=== PATIENT | male | born 1965 | race Caucasian/White ===

== ENCOUNTER 2021-08-15 07:06 | Outpatient (REF) | payer BC, SELFPAY ==
[2021-08-15 11:26] LABS: MANUAL DIFF FLAG NO
[2021-08-15 11:37] LABS: Basophils Percent Auto 0.6 % (0-2); Eosinophils Absolute Auto 0.1 X10*3/uL (0.0-0.4); Eosinophils Percent Auto 2.5 % (0-4); Hemoglobin 16.4 g/dl (14.0-18.0); Imm Gran Abs Auto 0.01 X10*3/uL (0.00-0.03); Imm Gran Pct Auto 0.2 % (0.0-0.4); Lymphocytes Absolute Auto 1.4 X10*3/uL (1.2-4.9); Lymphocytes Percent Auto 27.7 % (20-40); Mean Corpuscular HGB Conc 34.2 g/dl (31.0-36.0); Mean Corpuscular Hemoglobin 29.2 pg (27.0-33.0); Mean Corpuscular Volume 85.6 fL (80.0-98.0); Mean Platelet Volume 11.1 fL (9.4-12.4); Monocytes Absolute Auto 0.4 X10*3/uL (0.1-1.2); Monocytes Percent Auto 6.9 % (2-11); Neutrophils Absolute Auto 3.2 x10*3/uL (2.0-8.3); Neutrophils Percent Auto 62.1 % (45-73); Platelet Count 192 X10*3/uL (160-400); Red Blood Count 5.61 X10*6/uL (4.60-5.80); Red Cell Distribution Width 12.4 % (11.0-16.0); White Blood Count 5.2 X10*3/uL (4.8-10.8)
[2021-08-15 12:11] LABS: Alanine Aminotransferase 30 U/L (0-40); Albumin Level 4.2 g/dL (3.5-5.0); Alkaline Phosphatase 42 U/L (39-117); Anion Gap 11 (12-20); Aspartate Amino Transferase 18 U/L (5-37); Bilirubin Total 0.6 mg/dL (0.0-1.0); Blood Urea Nitrogen 22 mg/dL (9-16); Calcium 9.5 mg/dL (8.4-10.2); Carbon Dioxide 28 mmol/L (22-29); Chloride 106 mmol/L (96-108); Cholesterol 217 mg/dL; Estimated Glomerular Filt Rate > 60; Glucose Fasting 127 mg/dL (60-99); HDL Cholesterol 43 mg/dL; LDL Cholesterol Calculated 163 mg/dl; Potassium 4.7 mmol/L (3.3-5.1); Prostate Specific Antigen Scr 1.12 ng/mL (<0.05-4.0); Sodium 140 mmol/L (135-145); TSH reflex Free T4 1.31 uIU/mL (0.32-4.0); Total Protein 6.6 g/dL (6.5-8.0); Triglycerides 57 mg/dL
[2021-08-20 16:37] LABS: Testosterone, Free 91.8 pg/mL (35.0-155.0); Testosterone, Total 491 ng/dL (250-1100)
== END 2021-08-15 07:07 | disposition home or self-care (01) ==
LOC: HO.WFDLDS 07:06
PROVIDERS: Visit Provider Family Medicine
DX: Z00.00 Encounter for general adult medical examination without abnormal findings (principal); F41.9 Anxiety disorder, unspecified; F32.A Depression, unspecified; R00.2 Palpitations; Z12.5 Encounter for screening for malignant neoplasm of prostate
CPT/HCPCS: 36415; 80053; 80061; 84153; 84402; 84403; 84443; 85025

== ENCOUNTER → 2021-09-18 12:49 | Outpatient (BNVA) | payer BC, SELFPAY | PROVIDERS: Visit Provider Internal Medicine | DX: F10.21 Alcohol dependence, in remission (principal) | CPT/HCPCS: 80305 ==

== ENCOUNTER 2021-09-19 07:02 | Outpatient (REF) | payer BC, SELFPAY ==
[2021-09-19 11:37] LABS: Estimated Average Glucose 114 mg/dL; Hemoglobin A1c % 5.6 %
[2021-09-19 11:50] LABS: Anion Gap 12 (12-20); Blood Urea Nitrogen 18 mg/dL (9-16); Calcium 9.9 mg/dL (8.4-10.2); Carbon Dioxide 27 mmol/L (22-29); Chloride 108 mmol/L (96-108); Estimated Glomerular Filt Rate > 60; Glucose Fasting 131 mg/dL (60-99); Sodium 142 mmol/L (135-145)
== END 2021-09-19 07:03 | disposition home or self-care (01) ==
LOC: HO.WFDLDS 07:02
PROVIDERS: Visit Provider Family Medicine
DX: R73.01 Impaired fasting glucose (principal)
CPT/HCPCS: 36415; 80048; 83036

== ENCOUNTER → 2021-10-11 11:02 | Outpatient (REF) | payer BC, SELFPAY ==
--- NOTE | 2021-10-11 11:07 | HM_ITS ---
Conclusion: 1. Baseline numbers normal sinus rhythm with average heart rate of 84 beats per minute 2. No significant pauses or bradycardia noted 3. 4 runs of supra tachycardia, longest lasting 12 beats 4. Very rare ectopics noted 5. No patient reported events 6. Patient was monitored for total period of 5 days and 4 hours MTDD
== END ==
LOC: HO.CARD 11:02
PROVIDERS: PCP Family Medicine; Visit Provider Family Medicine
DX: R00.2 Palpitations (principal)
CPT/HCPCS: 93242

== ENCOUNTER → 2021-12-05 12:47 | Outpatient (BNVA) | payer BC, SELFPAY | PROVIDERS: PCP Family Medicine; Referring Provider Family Medicine; Visit Provider Internal Medicine Cardiovascular Disease | DX: Z13.89 Encounter for screening for other disorder (principal) ==

== ENCOUNTER → 2022-07-20 06:38 | Outpatient (REF) | payer BC, SELFPAY ==
--- NOTE | 2022-07-20 06:41 | HM_ITS ---
Conclusion: 1. Patient was monitored for total period of 3 days 2. Baseline was normal sinus rhythm with average heart rate of 71 beats per minute 3. No significant bradycardia or pauses noted 4. Total of 15,040 PACs accounting for 4.8% total beats account for frequent PACs 5. Patient reported 1 event correlated with sinus rhythm MTDD
== END ==
LOC: HO.CARD 06:38
PROVIDERS: PCP Family Medicine; Visit Provider Internal Medicine Cardiovascular Disease
DX: I47.1 Supraventricular tachycardia (principal)
CPT/HCPCS: 93242

== ENCOUNTER 2022-12-03 07:12 | Outpatient (REF) | payer BC, SELFPAY ==
[2022-12-03 11:24] LABS: MANUAL DIFF FLAG NO
[2022-12-03 11:48] LABS: Appearance Urine Clear; Color Urine Yellow; Glucose Urine UA Negative (Negative); Leukocyte Esterase Urine Negative (Negative); Nitrite Urine Negative (Negative); Specific Gravity - Urine 1.015 (1.005-1.025); Urine Blood Negative (Negative); Urine Ketones Negative (Negative); Urine Protein Negative (Neg-Trace)
[2022-12-03 11:58] LABS: Basophils Absolute Auto 0.1 X10*3/uL (0.0-0.2); Eosinophils Absolute Auto 0.2 X10*3/uL (0.0-0.4); Eosinophils Percent Auto 3.4 % (0-4); Hematocrit 45.5 % (42.0-52.0); Hemoglobin 15.3 g/dl (14.0-18.0); Imm Gran Abs Auto 0.03 X10*3/uL (0.00-0.03); Imm Gran Pct Auto 0.5 % (0.0-0.4); Lymphocytes Absolute Auto 1.9 X10*3/uL (1.2-4.9); Lymphocytes Percent Auto 30.8 % (20-40); Mean Corpuscular HGB Conc 33.6 g/dl (31.0-36.0); Mean Corpuscular Hemoglobin 28.7 pg (27.0-33.0); Mean Corpuscular Volume 85.2 fL (80.0-98.0); Mean Platelet Volume 11.4 fL (9.4-12.4); Monocytes Absolute Auto 0.5 X10*3/uL (0.1-1.2); Monocytes Percent Auto 8.2 % (2-11); Neutrophils Absolute Auto 3.4 x10*3/uL (2.0-8.3); Neutrophils Percent Auto 56.1 % (45-73); Platelet Count 183 X10*3/uL (160-400); Red Blood Count 5.34 X10*6/uL (4.60-5.80); Red Cell Distribution Width 13.3 % (11.0-16.0); White Blood Count 6.1 X10*3/uL (4.8-10.8)
[2022-12-03 12:22] LABS: Alanine Aminotransferase 31 U/L (0-40); Alkaline Phosphatase 39 U/L (39-117); Anion Gap 13 (12-20); Aspartate Amino Transferase 17 U/L (5-37); Bilirubin Total 0.5 mg/dL (0.0-1.0); Blood Urea Nitrogen 17 mg/dL (9-16); Calcium 9.1 mg/dL (8.4-10.2); Carbon Dioxide 26 mmol/L (22-29); Chloride 107 mmol/L (96-108); Cholesterol 142 mg/dL; Estimated Glomerular Filt Rate > 60; Glucose Fasting 135 mg/dL (60-99); HDL Cholesterol 32 mg/dL; LDL Cholesterol Calculated 100 mg/dl; Potassium 4.6 mmol/L (3.3-5.1); Sodium 141 mmol/L (135-145); TSH reflex Free T4 1.81 uIU/mL (0.32-4.0); Total Protein 6.3 g/dL (6.5-8.0); Triglycerides 52 mg/dL
[2022-12-03 12:40] LABS: Creatinine Urine 78.11 mg/dL; Microalbum/Creatinine Ratio Ur 7.6 ug/mg cr
[2022-12-10 06:54] LABS: Testosterone, Free 76.4 pg/mL (35.0-155.0); Testosterone, Total 404 ng/dL (250-1100)
== END 2022-12-03 07:13 | disposition home or self-care (01) ==
LOC: HO.WFDLDS 07:12
PROVIDERS: Visit Provider Family Medicine
DX: Z00.00 Encounter for general adult medical examination without abnormal findings (principal); R53.83 Other fatigue; R68.82 Decreased libido; I10 Essential (primary) hypertension
CPT/HCPCS: 36415; 80053; 80061; 81003; 82043; 84402; 84403; 84443; 85025

== ENCOUNTER → 2022-12-06 09:08 | Outpatient (BNVA) | payer BC, SELFPAY | PROVIDERS: PCP Family Medicine; Referring Provider Family Medicine; Visit Provider Internal Medicine Cardiovascular Disease | DX: I49.9 Cardiac arrhythmia, unspecified (principal) | CPT/HCPCS: 93005 ==

== ENCOUNTER 2023-04-16 05:58 | Outpatient (REF) | payer BC, SELFPAY ==
[2023-04-16 07:31] LABS: Appearance Urine Clear; Color Urine Yellow; Glucose Urine UA Negative (Negative); Leukocyte Esterase Urine Negative (Negative); Nitrite Urine Negative (Negative); Specific Gravity - Urine 1.015 (1.005-1.025); Urine Blood Negative (Negative); Urine Ketones Negative (Negative); Urine Protein Negative (Neg-Trace)
[2023-04-16 08:17] LABS: Creatinine Urine 75.84 mg/dL; Microalbumin Urine < 5.0 mg/L
[2023-04-16 08:34] LABS: Alanine Aminotransferase 41 U/L (0-40); Albumin Level 4.2 g/dL (3.5-5.0); Alkaline Phosphatase 39 U/L (39-117); Anion Gap 12 (12-20); Aspartate Amino Transferase 24 U/L (5-37); Bilirubin Total 0.4 mg/dL (0.0-1.0); Blood Urea Nitrogen 16 mg/dL (9-16); Calcium 9.6 mg/dL (8.4-10.2); Carbon Dioxide 28 mmol/L (22-29); Chloride 106 mmol/L (96-108); Cholesterol 136 mg/dL; Estimated Glomerular Filt Rate > 60; Glucose Fasting 127 mg/dL (60-99); HDL Cholesterol 34 mg/dL; LDL Cholesterol Calculated 94 mg/dl; Potassium 4.9 mmol/L (3.3-5.1); Sodium 141 mmol/L (135-145); Total Protein 6.9 g/dL (6.5-8.0); Triglycerides 42 mg/dL
[2023-04-16 08:37] LABS: TSH reflex Free T4 2.01 uIU/mL (0.32-4.0)
[2023-04-16 08:38] LABS: Prostate Specific Antigen Scr 1.43 ng/mL (<0.05-4.0)
== END 2023-04-16 05:59 | disposition home or self-care (01) ==
LOC: HO.LAB 05:58
PROVIDERS: PCP Family Medicine; Visit Provider Family Medicine
DX: Z00.00 Encounter for general adult medical examination without abnormal findings (principal); Z12.5 Encounter for screening for malignant neoplasm of prostate; I10 Essential (primary) hypertension
CPT/HCPCS: 36415; 80053; 80061; 81003; 82043; 84153; 84443

== ENCOUNTER 2023-04-23 16:02 | Outpatient (AMB) | payer BC, SELFPAY ==
--- NOTE | 2023-04-23 16:08 | A.OFFPC_ITS ---
Vital Signs 04/23/23 16:09 Height 6 ft Weight 237 lb BMI 32.1 BP 126/70 Blood Pressure Location Lt brachial Position Sitting Pulse 82 Pulse Source Pulse Oximeter Pulse Oximetry (%) 98 Oxygen Delivery Method Room Air Intake Visit Reasons: Follow up on labs Intake Note: Patient is here to follow up on his labs. Allergies citalopram Adverse Reaction (Mild, Verified 04/23/23 16:11) palpitaitons sertraline Adverse Reaction (Mild, Verified 04/23/23 16:11) Palpitations Tobacco use date assessed: 04/23/23 Dental Screening Dental Screen Date: 04/23/23 Did you have a dental visit in the last 12 months?: Yes Did you have a dental problem in the last 6 months where you did not have access to dental care?: No Was dental information given to patient?: Patient has dentist HPI Follow up on labs HPI Details 57 y/o male presents to f/u pre-diabetes and labs. Labs were drawn 04/16/23. Reviewed labs with pt. Elevated ALT 41. He denies EtOH use. Triglycerides 42. TC 136. LDL 94. HDL low at 34. A1c today 04/23/23 is 5.7%. He reports he has been having ongoing issues with motivation and has not been training lately. Pt has ongoing complaints of fatigue and ongoing palpitations. [facility] Medical History Biceps muscle tear Surgical History Previous back surgery Family History Mother Stroke Diabetes Other Mental health disorder Substance use disorder Social History Housing: Other (mobile home ) Patient Tobacco Use Status: Current everyday Tobacco user (chewing tobacco) e-Cigarette/Vaping Use: Never Used Second Hand Smoke Exposure: No Current occupational status: employed Current occupational exposures/hazards: No Cognitive needs: No Hearing needs: No Vision needs: No Questionnaire Thrive Questionnaire Date Thrive assessed: 11/22/22 DREAD-7 AMB Questionnaire DREAD-7 Date DREAD - 7 assessed: 11/22/22 Source: Developed by Drs. Paul L. Leah Taylor, Guru Burciaga and colleagues, with an educational ladi from [employer]. Review of Systems Const Denies chills, Denies fatigue, Denies fever(s), Denies headache(s) and Denies weakness ENT Denies dizziness and Denies headache(s) Card Denies dyspnea Resp Denies cough, Denies dyspnea, Denies wheezing and Denies other (shortness of breath) Musc Denies numbness and Denies tingling Neuro Denies dizziness, Denies headache(s), Denies numbness, Denies tingling and Denies weakness Psych Denies anxiety and Denies depression Endo Denies fatigue Aller/Immun Denies wheezing Physical exam (Primary Care) Vital Signs: Last Vital Signs Pulse 82 04/23/23 16:09 BP 126/70 04/23/23 16:09 Pulse Ox 98 04/23/23 16:09 Oxygen Delivery Method Room Air 04/23/23 16:09 BMI result Body Mass Index 32.1 Tobacco/Smoking Status: Tobacco use Status Tobacco use date assessed 04/23/23 04/23/23 16:16 Patient Tobacco Use Status Current everyday Tobacco ( 04/23/23 16:10 chewing tobacco) e-Cigarette/Vaping Use Never Used 04/23/23 16:10 Thrive Assessment: Date of Thrive Assessment Date Thrive assessed 11/22/22 04/23/23 16:10 Const General: well developed; No acute distress Nutritional Appearance: well nourished Orientation/consciousness: patient oriented x3 HENMT Head: Yes normocephalic and Yes atraumatic Eyes General: appearance normal, both eyes and all related structures Pupils: Equal, round and reactive pupils present EOM: EOMs intact bilaterally Resp Effort & Inspection: normal respiratory effort Neuro General: patient oriented x3 and gait normal Cranial nerves: Yes Equal, round and reactive pupils present Psych Affect: normal affect Results AMB Hemoglobin A1c AMB Hemoglobin A1c 5.7 % Last Edit by Addie Shipman CMA on 04/23/23 16:29 Results Reviewed Results Reviewed: Laboratory Last Values Hgb A1c (Clinic) 5.7 % (4.0-6.0) 04/23/23 16:28 Assessment and Plan Assessment & Plan (1) Hypercholesterolemia: Code(s): E78.00 - Pure hypercholesterolemia, unspecified Plan: Total cholesterol and LDL are controlled with rosuvastatin HDL is still low Encouraged exercise (2) Elevated ALT measurement: Code(s): R74.01 - Elevation of levels of liver transaminase levels Plan: Mildly elevated ALT Encouraged good hydration and gradual weight loss Hydrate well Will recheck in 6-8 weeks (3) Pre-diabetes: Code(s): R73.03 - Prediabetes Plan: A1c is again 5.7%; pre diabetes range and stable Encouraged additional exercise Will follow-up (4) Anxiety and depression: Code(s): F41.9 - Anxiety disorder, unspecified; F32.A - Depression, unspecified Plan: Fairly stable on current medication regimen and only using lorazepam occasionally Continue current medication regimen (5) Fatigue: Code(s): R53.83 - Other fatigue Plan: Still has ongoing moderately severe fatigue Cardiac workup has been fairly unrevealing. He is using his CPAP regularly. Lab work also unrevealing so far. 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
[2023-04-23 16:09] VITALS: BP 126/70; PULSE 82; O2SAT 98; BMI 32.1
== END 2023-04-23 16:57 | disposition home or self-care (01) ==
PROVIDERS: PCP Family Medicine; Visit Provider Family Medicine
DX: E78.00 Pure hypercholesterolemia, unspecified (principal); R74.01 Elevation of levels of liver transaminase levels; R73.03 Prediabetes; F41.9 Anxiety disorder, unspecified; F32.A Depression, unspecified; R53.83 Other fatigue; R00.2 Palpitations
CPT/HCPCS: 83036; 99214

== ENCOUNTER 2023-09-03 06:06 | Outpatient (REF) | payer BC, SELFPAY ==
[2023-09-03 07:27] LABS: Alanine Aminotransferase 51 U/L (0-40); Albumin Level 4.2 g/dL (3.5-5.0); Alkaline Phosphatase 37 U/L (39-117); Anion Gap 10 (12-20); Aspartate Amino Transferase 24 U/L (5-37); Bilirubin Total 0.4 mg/dL (0.0-1.0); Blood Urea Nitrogen 13 mg/dL (9-16); Calcium 9.3 mg/dL (8.4-10.2); Carbon Dioxide 30 mmol/L (22-29); Chloride 108 mmol/L (96-108); Estimated Glomerular Filt Rate > 60; Glucose Fasting 126 mg/dL (60-99); Potassium 4.8 mmol/L (3.3-5.1); Sodium 143 mmol/L (135-145); Total Protein 6.8 g/dL (6.5-8.0)
== END 2023-09-03 06:07 | disposition home or self-care (01) ==
LOC: HO.LAB 06:06
PROVIDERS: PCP Family Medicine; Visit Provider Family Medicine
DX: Z00.00 Encounter for general adult medical examination without abnormal findings (principal); R74.01 Elevation of levels of liver transaminase levels
CPT/HCPCS: 36415; 80053

== ENCOUNTER 2023-09-11 14:25 | Outpatient (AMB) | payer BC, SELFPAY ==
--- NOTE | 2023-09-11 14:18 | A.OFFPC_ITS ---
Intake Visit Reasons: follow-up elevated liver enzymes Intake Note: Patient is here to follow up on his liver enzymes today. Allergies citalopram Adverse Reaction (Mild, Verified 09/11/23 14:21) palpitaitons sertraline Adverse Reaction (Mild, Verified 09/11/23 14:21) Palpitations Tobacco use date assessed: 09/11/23 HPI follow-up elevated liver enzymes HPI Details 57 y/o male presents to f/u elevated [facility] enzymes via telemedicine. Labs were drawn 09/03/23. Reviewed labs with pt. Elevated fasting glucose of 126. Last A1c in April was 5.7%. ALT worsened from 41 to 51. [facility] Medical History Biceps muscle tear Surgical History Previous back surgery Family History Mother Stroke Diabetes Other Mental health disorder Substance use disorder Social History Housing: Other (mobile home ) Patient Tobacco Use Status: Current everyday Tobacco user (chewing tobacco) e-Cigarette/Vaping Use: Never Used Second Hand Smoke Exposure: No Current occupational status: employed Current occupational exposures/hazards: No Cognitive needs: No Hearing needs: No Vision needs: No Questionnaire Thrive Questionnaire Date Thrive assessed: 11/22/22 DREAD-7 AMB Questionnaire DREAD-7 Date DREAD - 7 assessed: 11/22/22 Source: Developed by Drs. Paul Taylor, Leah Hopson, Guru Burciaga and colleagues, with an educational ladi from [employer]. Review of Systems Const Denies chills, Denies fatigue, Denies fever(s), Denies headache(s) and Denies weakness ENT Denies dizziness and Denies headache(s) Card Denies dyspnea Resp Denies cough, Denies dyspnea, Denies wheezing and Denies other (shortness of breath) Musc Denies numbness and Denies tingling Neuro Denies dizziness, Denies headache(s), Denies numbness, Denies tingling and Denies weakness Psych Denies anxiety and Denies depression Endo Denies fatigue Aller/Immun Denies wheezing Physical exam (Primary Care) Tobacco/Smoking Status: Tobacco use Status Tobacco use date assessed 09/11/23 09/11/23 14:21 Patient Tobacco Use Status Current everyday Tobacco ( 09/11/23 14:21 chewing tobacco) e-Cigarette/Vaping Use Never Used 09/11/23 14:21 Thrive Assessment: Date of Thrive Assessment Date Thrive assessed 11/22/22 09/11/23 14:21 Telehealth Telehealth Location of provider rendering services: practice address Location of patient: address on file Patient Identification confirmed using: Name, : Yes Telehealth method: voice only Patient verbally consented to treatment: Yes Patient verbally consented to billing insurance company: Yes Patient informed of any privacy concerns related to visit: Yes Minutes spent on Phone/Video with Pt.: 5 Assessment and Plan Assessment & Plan (1) Elevated ALT measurement: Code(s): R74.01 - Elevation of levels of liver transaminase levels Plan: Liver?enzymes?remain?mildly?elevated?and?slightly?increased Will?check?ultrasound Encouraged?weight?loss (2) Pre-diabetes: Code(s): R73.03 - Prediabetes Plan: We?can?check A1c?with?his?next?blood?draw Orders: Orders US abdomen berman w elastography Today R74.01 - Elevation of levels of liver transaminase levels Coding Level of Care Code Tele Est Pt Level 2 (79278) Diagnoses Elevated ALT measurement R74.01 Pre-diabetes R73.03
== END 2023-09-11 17:00 ==
LOC: HO.HMGFM 14:25
PROVIDERS: PCP Family Medicine; Visit Provider Family Medicine
DX: R74.01 Elevation of levels of liver transaminase levels (principal); R73.03 Prediabetes
CPT/HCPCS: 99441

== ENCOUNTER 2023-10-11 07:28 | Outpatient (REF) | payer BC, SELFPAY ==
--- NOTE | ~2023-10-11 | US_ITS ---
EXAMINATION: US ABDOMEN LIMITED WITH LIVER ELASTOGRAPHY CLINICAL INFORMATION: Elevated serum transaminase levels. COMPARISON: None available. TECHNIQUE: Real-time imaging of the abdominal viscera. Noninvasive ultrasound liver fibrosis assessment is performed using Sherrell ElastPQ point quantification shear wave elastography (2D-SWE) with a C5-2 MHz transducer. Multiple elastography samples are obtained. FINDINGS: PANCREAS: Normal. The visualized pancreatic head and body are normal in appearance. The remainder of the pancreas is obscured from visualization by the overlying bowel gas. LIVER: Normal. The liver demonstrates normal size, contour and echogenicity. No focal lesion or intrahepatic biliary duct dilatation. The right lobe measures 16.4 cm in length. The left lobe measures 9.0 cm in length. Portal flow is towards the liver (hepatopetal). Shear wave liver elastography median stiffness is 1.33 m/s (reference: normal median stiffness is 1.3 m/s or less). IQR/median stiffness to assess sampling precision is 0.05 (reference: good quality data set is IQR/median stiffness of 0.15 or less). GALLBLADDER: Normal. The gallbladder is physiologically distended without evidence of stones, sludge, polyps, wall thickening or pericholecystic fluid. COMMON BILE DUCT: Normal in caliber measuring 0.2 cm in diameter. RIGHT KIDNEY: At the lower pole, a 1.1 cm benign, simple cyst is seen, which requires no imaging follow-up. No hydronephrosis. At the lower pole, a 6 mm nonobstructing calculus is seen. The kidney measures 12.2 cm in maximum dimension. FREE FLUID: None. US/US abdomen berman w elastography IMPRESSION: 1. Liver elastography: In the absence of other known clinical signs, measurements rule out compensated advanced chronic liver disease. If there are known clinical signs, further testing may be needed for confirmation. 2. A 6 mm nonobstructing right renal lower pole calculus is seen. REFERENCE: Society of Radiologists in Ultrasound Liver Stiffness Thresholds (2020): LIVER STIFFNESS THRESHOLDS: *Liver Stiffness equal or less than 1.3 m/s: High probability of being normal. *Liver Stiffness less than 1.7 m/s: In the absence of other known clinical signs, rules out compensated advanced chronic liver disease. *Liver Stiffness 1.7-2.1 m/s: Suggestive of compensated advanced chronic liver disease but need further test for confirmation. *Liver Stiffness over 2.1 m/s: Rules in compensated advanced chronic liver disease. *Liver Stiffness over 2.4 m/s: Suggestive of clinically significant portal hypertension. QUALITY OF DATA SET: *IQR/Median value equal or less than 0.15 implies a quality data set. *IQR/Median value over 0.15 implies a poor quality data set. SIGNIFICANT CHANGE FROM PRIOR EXAM: Significant change if liver stiffness measurement is 10% or greater from prior exam. OTHER CONSIDERATIONS: The stage of liver fibrosis may be overestimated in the setting of acute hepatitis, liver inflammation, elevated liver function tests, hepatic vascular congestion, obstructive cholestasis, non-fasting state, and infiltrative diseases such as amyloidosis and lymphoma. In some patients with NAFLD, the liver stiffness thresholds for compensated advanced chronic liver disease may be lower. In causes other than viral hepatitis and NAFLD, liver stiffness thresholds are not well established.
== END 2023-10-11 07:29 | disposition home or self-care (01) ==
LOC: HO.US 07:28
PROVIDERS: PCP Family Medicine; Visit Provider Family Medicine
DX: R74.01 Elevation of levels of liver transaminase levels (principal)
CPT/HCPCS: 76705; 76981

== ENCOUNTER → 2023-11-15 13:29 | Outpatient (REF) | payer BC, SELFPAY ==
--- NOTE | 2023-11-15 13:41 | CA_ITS ---
Transthoracic Echocardiogram Patient (Last, First, Middle): Juan F Tony, Gender: Male Date of : 1965 Age: 58 Procedure Date: 11/15/2023 Procedure Type: Transthoracic Echocardiogram Location: OP Height: 185.42 cm Weight: 105.69 kg BSA: 2.30 m2 Heart Rate: 67 bpm BP: 128 / 64 mmHg Team Manager: EZ Referring MD: Chapincito Gomez MD Thermal Cutter Hand: Chapincito Gomez MD Symptoms: I49.9 - Cardiac arrhythmia, unspecified Study Quality: Adequate ECG Rhythm: Sinus Conclusions: - 1. Normal LV ejection fraction of 60 65% 2. Normal cardiac valvular Doppler 3. No gross pericardial effusion Findings Left Ventricle Normal left ventricular size, thickness, and systolic function. The visually estimated ejection fraction is between 60-65%. Spectral Doppler is indicative of a normal filling pattern. Right Ventricle Normal right ventricular cavity size and systolic function. Atria Both atria are normal in size. There is no evidence of interatrial shunt. Aortic Valve There is a normal trileaflet aortic valve. There is no aortic valve stenosis. There is no aortic valve regurgitation. Mitral Valve Normal mitral valve structure and function. There is trace mitral valve regurgitation. There is no mitral valve stenosis. Pulmonic Valve The pulmonic valve is likely normal. There is trace pulmonic valve regurgitation. Tricuspid Valve Normal tricuspid valve structure. Tricuspid regurgitation envelope is inadequate for calculation of right ventricular systolic pressure. Normal right atrial pressure. Great Vessels All visible segments of the aorta are normal in size. The pulmonary artery was not well visualized. There is no dilatation of the ascending aorta measuring 3.20 cm. Venous The inferior vena cava is normal in size and collapses greater than 50% with inspiration. Pericardium/Pleural There is no evidence of pericardial effusion. Prior Study Comparison No prior study available for comparison. Measurements 2D Linear Measurements IVSd: 1.16 0.6-0.9/0.6-1.0 cm LVIDd: 5.69 3.9-5.3/4.2-5.9 cm LVIDd Index: 2.47 2.4-3.2/2.2-3.1 cm/m2 LVIDs: 3.31 2.0-3.6 cm LVPWd: 1.21 0.7-1.1 cm LA Diam: 4.30 2.7-3.8/3.0-4.0 cm LAIDs Index: 1.87 1.5-2.3 cm/m2 LV Mass: 352.96 67-162/88-224 g LV Mass Index: 153.46 43-95/49-115 g/m2 LVOT Diam: 2.40 3.0+(-)1.3 cm 2D Systolic Function EF 4C: 67.60 >55% EF 2C: 56.50 >55% EF BiP: 62.30 >55% Mitral Valve MV Pk E: 0.66 MV PK A: 0.54 MV Decel Time: 201.00 E/A: 1.20 E'Lateral: 6.85 E'Medial: 7.07 E/E' Med: 9.30 E/E' Lat: 9.60 PHT: 59.00 MVA PHT: 3.73 Decel [place]: 3.27 Aortic Valve AoV Pk Alan: 1.21 AoV Mn Alan: 0.82 AoV VTI: 0.24 AoV Pk Grad: 6.00 Aov Mn Grad: 3.00 ROMINA Cont.VTI: 3.86 LVOT LVOT Pk Alan: 0.95 LVOT Mn Alan: 0.62 LVOT VTI: 0.20 LVOT Pk Grad: 4.00 LVOT Mn Grad: 2.00 LVOT Diam: 2.40 LVOT Area: 4.52 Diastolic Function MV Pk E: 0.66 MV Pk A: 0.54 E/A: 1.20 E'Medial: 7.07 E/E' Med: 9.30 E' Laterial: 6.85 E/E' Lat: 9.60 Right Ventricle TAPSE (mm): 22.90 TVS' Alan: 12.30 Tricuspid Valve RA Press: 3.00 Great Vessels Aorta Sinus of Valsalva: 3.30 2.0-3.5 cm Ao Asc: 3.20 2.1-3.4 cm Pulmonary Veins Pulm Vein S/D 1.60 Pulmonary Valve PV Pk Alan: 1.04 Peak PV Grad: 4.00 Updated in Other Vendor System with Status of Final Chapincito Gomez MD electronically signed on 11/16/2023 1:14:20 PM with status of Final
--- NOTE | 2023-11-15 13:41 | HM_ITS ---
Conclusion: 1. Patient was monitored for total period of 2 days and 21 hours 2. Baseline was normal sinus rhythm with average heart of 70 beats per minute 3. Occasional PACs noted 4. No significant pauses noted 5. No patient reported events MTDD
== END ==
LOC: HO.CARD 13:29
PROVIDERS: PCP Family Medicine; Visit Provider Internal Medicine Cardiovascular Disease
DX: I49.9 Cardiac arrhythmia, unspecified (principal); I47.10 Supraventricular tachycardia, unspecified; R53.83 Other fatigue; G47.30 Sleep apnea, unspecified
CPT/HCPCS: 93242; 93306

== ENCOUNTER → 2023-11-15 13:41 | Outpatient (BNV) | payer BC, SELFPAY | PROVIDERS: PCP Family Medicine; Visit Provider Internal Medicine Cardiovascular Disease | DX: I49.9 Cardiac arrhythmia, unspecified (principal) | CPT/HCPCS: 93244; 93306 ==

== ENCOUNTER 2023-11-16 05:00 | Emergency (ER) | payer BC, SELFPAY ==
--- NOTE | 2023-11-16 | ECG_ITS ---
Test Reason : CHEST PAIN Blood Pressure : / mmHG Vent. Rate : 060 BPM Atrial Rate : 060 BPM P-R Int : 142 ms QRS Dur : 096 ms QT Int : 416 ms P-R-T Axes : 063 033 008 degrees QTc Int : 416 ms Normal sinus rhythm Normal ECG No previous ECGs available Referred By: Generic ED Physician Electronically Signed By:DANNY PERDOMO MD
--- NOTE | ~2023-11-16 | XR_ITS ---
EXAMINATION: XR CHEST CLINICAL INFORMATION: Left-sided chest pressure. COMPARISON: None available. TECHNIQUE: 2 views of the chest were obtained. FINDINGS: EKG leads overlie the chest. Generator is seen projected over the left mid chest, obscuring assessment of the underlying tissues. The cardiomediastinal silhouette is within normal limits in size. Lungs bilaterally are symmetrically expanded. There is focal eventration of the anteromedial right hemidiaphragm. There is a punctate nodular density seen in the left mid lung, possibly a small calcified granuloma. Slight thickening of the central airways is seen. No focal consolidation, effusion or pneumothorax is seen. S-shaped thoracolumbar scoliosis. XR/XR chest 2V IMPRESSION: * Slight thickening of the central airways, suggesting reactive airways disease or bronchitis. No focal pneumonia. * Punctate nodular density in the left mid lung, possibly a small calcified granuloma.
[2023-11-16 05:16] VITALS: BP 116/65; PULSE 74; RESP 16; TEMP 36.9; O2SAT 100; BMI 30.8
[2023-11-16 05:25] LABS: MANUAL DIFF FLAG NO
[2023-11-16 05:27] LABS: Basophils Percent Auto 0.5 % (0-2); Eosinophils Absolute Auto 0.2 X10*3/uL (0.0-0.4); Eosinophils Percent Auto 2.9 % (0-4); Hemoglobin 16.7 g/dl (14.0-18.0); Imm Gran Abs Auto 0.03 X10*3/uL (0.00-0.03); Imm Gran Pct Auto 0.5 % (0.0-0.4); Lymphocytes Absolute Auto 1.7 X10*3/uL (1.2-4.9); Lymphocytes Percent Auto 28.6 % (20-40); Mean Corpuscular HGB Conc 34.8 g/dl (31.0-36.0); Mean Corpuscular Hemoglobin 28.9 pg (27.0-33.0); Mean Corpuscular Volume 83.2 fL (80.0-98.0); Mean Platelet Volume 10.4 fL (9.4-12.4); Monocytes Absolute Auto 0.6 X10*3/uL (0.1-1.2); Monocytes Percent Auto 9.5 % (2-11); Neutrophils Absolute Auto 3.4 x10*3/uL (2.0-8.3); Platelet Count 196 X10*3/uL (160-400); Red Blood Count 5.77 X10*6/uL (4.60-5.80); Red Cell Distribution Width 13.2 % (11.0-16.0); White Blood Count 5.9 X10*3/uL (4.8-10.8)
[2023-11-16 05:49] LABS: Alanine Aminotransferase 47 U/L (0-40); Albumin Level 4.3 g/dL (3.5-5.0); Alkaline Phosphatase 43 U/L (39-117); Anion Gap 11 (12-20); Aspartate Amino Transferase 24 U/L (5-37); Bilirubin Total 0.8 mg/dL (0.0-1.0); Blood Urea Nitrogen 17 mg/dL (9-16); Calcium 9.6 mg/dL (8.4-10.2); Carbon Dioxide 29 mmol/L (22-29); Chloride 106 mmol/L (96-108); Estimated Glomerular Filt Rate > 60; Glucose Random 142 mg/dL (60-115); Sodium 141 mmol/L (135-145); Total Protein 7.1 g/dL (6.5-8.0)
[2023-11-16 05:54] LABS: Troponin-I High Sensitivity < 2.7 ng/L (<3.5-35.0)
[2023-11-16 06:26] VITALS: PULSE 56; RESP 12; O2SAT 98
--- NOTE | 2023-11-16 07:11 | ED_ITS ---
HPI - Chest Pain General Chief Complaint: Chest Pain Stated Complaint: Chest pain Time Seen by Provider: 11/16/23 06:36 Source: patient and family ( at bedside ) Mode of arrival: ambulatory Limitations: no limitations History of Present Illness HPI narrative: 58-year-old male with a past medical history of cardiac arrhythmia with persistent PACs, SVT currently on metoprolol being followed by Dr. Gomez the motorboat mechanic helper presenting with complaints of left-sided chest pressure has been present intermittently over the past week. Although since 04:30 he has had some weird sensation tingling to his left jaw and pain down his left arm. He reports the pain occasionally radiates to the right side of his chest. He is very anxious about this. He reports he has also felt very tired, fatigued and short of breath. He currently has a Holter monitor in place. 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) Timing of current episode: episodic and still present Prior episodes: Yes Onset: during rest Pain location: left chest Pain radiation: left arm, jaw/teeth and left shoulder Severity: moderate Quality: other (pressure sensation ) Relieving factors: nothing Exacerbating factors: nothing Treatment prior to arrival: none Risk Factors Thoracic aortic dissection risk factors: none Related Data Home Medications Medication Instructions Recorded Confirmed gabapentin 600 mg tablet 600 mg PO DAILY 05/03/22 12/06/22 Previous Rx's Medication Instructions Recorded lorazepam 0.5 mg tablet 0.5 mg PO BEDTIME PRN anxiety 30 01/17/23 days #23 tabs metoprolol succinate 50 mg 50 mg PO DAILY #90 tabs 04/15/23 tablet,extended release 24 hr omeprazole 20 mg capsule,delayed 20 mg PO DAILY 90 days #90 caps 07/15/23 release rosuvastatin 5 mg tablet 5 mg PO DAILY 30 days #30 tabs 09/09/23 hydroxyzine HCl 50 mg tablet 50 mg PO BID PRN itching 30 days 09/17/23 #60 tabs gabapentin 300 mg capsule 300 mg PO BEDTIME 30 days #30 caps 10/09/23 Allergies Allergy/AdvReac Type Severity Reaction Status Date / Time citalopram AdvReac Mild palpitaiton Verified 09/11/23 14:21 s sertraline AdvReac Mild Palpitation Verified 09/11/23 14:21 s Review of Systems 2 Review of Systems: Constitutional : No Weight loss, No Fever, No Chills, No Night Sweats, + Fatigue, No Malaise ENT/Mouth : No Hearing loss, No Ear Pain, No Nasal Congestion, No Sinus Pain, No Hoarseness, No sore throat, No Rhinorrhea, No Swallowing Difficulty Eyes: No Eye Pain, No Swelling, No Redness, No Foreign Body, No Discharge, No Vision Changes Cardiovascular : + Chest Pain, + SOB, No Dyspnea on Exertion, No Orthopnea, No Edema, No Palpitations Respiratory : No Cough, No Sputum, No Wheezing, No Smoke Exposure, No Dyspnea Gastrointestinal : No Nausea, No Vomiting, No Diarrhea, No Constipation, No abdominal Pain, No Hematochezia, No Melena Genitourinary : no irregular bleeding, No Dysuria, No Urinary Frequency, No Hematuria, No Urinary Incontinence, No Urgency, No Flank Pain, No Urinary Flow Changes, No Hesitancy Musculoskeletal : No joint pain, No Myalgias, No Joint Swelling Skin : No Skin Lesions, No rash Neuro : No Weakness, + tingling to left jaw/left arm, No Loss of Consciousness, No Dizziness, No Headache Psych : No Anxiety/Panic, No Depression, No SI/HI/AH/VH, No Social Issues, Heme/Lymph: No Bruising, No Bleeding,No Lymphadenopathy Endocrine : No Polyuria, No Polydipsia, No Temperature Intolerance Yes all other systems are reviewed and are negative [facility] Past Medical History Attestation statement: The following information was validated with the patient. Source: old records reviewed, obtained from family and nursing notes reviewed Medical History Biceps muscle tear Surgical History Previous back surgery Family History Family History Mother Stroke Diabetes Other Mental health disorder Substance use disorder Social History Social History Housing: Other (mobile home ) Patient Tobacco Use Status: Current everyday Tobacco user (chewing tobacco) Smoked in Last 30 Days: No e-Cigarette/Vaping Use: Never Used Second Hand Smoke Exposure: No Use of substances other than those prescribed or required for medical reasons: No Advance Directives: No Advance Directives Information Provided: Yes Current occupational status: employed Current occupational exposures/hazards: No Cognitive needs: No Hearing needs: No Vision needs: No Physical Exam 2 Vital Signs: Vital Signs: Last Vital Signs Temp 97.6 F 11/16/23 09:19 Pulse 59 11/16/23 09:19 Resp 16 11/16/23 09:19 BP 99/54 L 11/16/23 09:19 Pulse Ox 98 11/16/23 09:19 O2 Del Method Room Air 11/16/23 09:19 BMI result Body Mass Index 30.8 Vital signs reviewed. Blood pressure normal. Pulse normal. Respiration normal. Oxygen normal. Temperature normal. Appearance: Alert. Oriented X3. No acute distress. Head: Normal external exam. Normocephalic. Atraumatic. Eyes: PERRLA. EOMI. Conjunctiva and sclera normal. Eyelids normal. ENT: EAC normal. TM's Normal. Pharynx normal. Uvula midline. Moist mucous membranes. No lesions/ulcerations or masses noted on the tongue. Normal voice. No trismus noted. No drooling noted. No muffled voice noted. Neck: Normal inspection. Neck supple. FROM. No adenopathy. Thyroid Normal. No meningeal signs. CVS: Normal heart rate and rhythm. Heart sound normal. Pulses normal throughout. No murmurs/rales/gallops. Respiratory: No respiratory distress. Painless inspiration. Breath sounds normal. No wheezes/rales/rhonchi noted. Chest nontender. No accessory muscle usage noted or decreased air movement noted. Abdomen: Soft and nontender. Back: Full range of motion noted. Nontender. Skin: Skin warm and dry. Normal skin color. Normal skin turgor. No rashes/lesions/lacerations noted. Extremities: Extremities exhibit normal range of motion and nontender. No Lower extremity edema or calf tenderness noted. Neuro: Oriented X 3. No motor deficit. No sensory deficit. Reflexes normal. Normal steady gait. No focal neuro deficits noted. CN's II-XII intact bilaterally? Vascular: + radial pulses. Normal cap refill. No cyanosis noted to upper extremity nails Course Course Course Narrative: 6:45am This patient presents with chest pain, with symptoms of chest pain. Minimal CAD risk factors. Exam without evidence of volume overload. EKG without signs of active ischemia. HEART score: 2. Given the timing of pain to ER presentation, plan to send delta troponin to evaluate for NSTEMI. Presentation not consistent with acute PE, pneumothorax, thoracic arotic dissection, cardiac effusion or tamponade. Plan: labs, troponin, EKG, CXR, patient requesting something for anxiety will give his prescribed 0.5 mg of Ativan and serial reassessment Reevaluation(s) Reevaluation #1: Labs reviewed and all labs within normal limits. Patient had 2- delta troponins. BNP is negative. EKG normal sinus rhythm no acute ischemic change are noted. Sent a consult to Dr. Gomez. Will re-evaluate Time: 07:38 Reevaluation #2: CXR x-ray revealed reactive airway disease possible granuloma otherwise no other acute processes. Patient reports his chest pain had resolved. I discussed this case with Dr. Gomez and we discussed that the patient has low risk factors he has a negative troponin negative D-dimer negative BNP and a normal EKG and his chest pain has resolved therefore low risk. We do not believe this is ACS. Patient will be discharged with outpatient follow-up with instructions return if any new or worsening symptoms. Patient with at bedside understand agree this plan Time: 09:40 Medications Administered Discontinued Medications Generic Name Dose Route Start Last Admin Trade Name Daveq PRN Reason Stop Dose Admin Lorazepam 0.5 mg 11/16/23 06:45 11/16/23 07:24 Lorazepam 0.5 Mg Tablet PO 11/16/23 06:46 0.5 mg ONCE ONE Administration Lorazepam 1 mg 11/16/23 09:04 11/16/23 09:20 Lorazepam 1 Mg Tablet PO 11/16/23 09:05 1 mg ONCE ONE Administration Medical Decision Making Medical Decision Making [facility] Narrative: see course Differential Diagnosis Differential Diagnoses: The differential diagnosis associated with the presentation includes see course Consult Healthcare Provider Management of the patient was discussed with: Executive Sous Chef (Dr. Gomez the motorboat mechanic helper) Lab Data MDM Lab Attestation statement: I reviewed the patient's lab results. 11/16/23 05:21 11/16/23 05:21 Labs: Lab Results 11/16/23 11/16/23 Range/Units 05:21 07:32 WBC 5.9 (4.8-10.8) X10*3/uL RBC 5.77 (4.60-5.80) X10*6/uL Hgb 16.7 (14.0-18.0) g/dl Hct 48.0 (42.0-52.0) % MCV 83.2 (80.0-98.0) fL MCH 28.9 (27.0-33.0) pg MCHC 34.8 (31.0-36.0) g/dl RDW 13.2 (11.0-16.0) % Plt Count 196 (160-400) X10*3/uL MPV 10.4 (9.4-12.4) fL Immature Gran % (Auto) 0.5 H (0.0-0.4) % Neut % (Auto) 58.0 (45-73) % Lymph % (Auto) 28.6 (20-40) % [place] % (Auto) 9.5 (2-11) % Eos % (Auto) 2.9 (0-4) % Baso % (Auto) 0.5 (0-2) % Lymph # (Auto) 1.7 (1.2-4.9) X10*3/uL [place] # (Auto) 0.6 (0.1-1.2) X10*3/uL Eos # (Auto) 0.2 (0.0-0.4) X10*3/uL Baso # (Auto) 0.0 (0.0-0.2) X10*3/uL Abs Immat Gran (auto) 0.03 (0.00-0.03) X10*3/uL Absolute Neuts (auto) 3.4 (2.0-8.3) x10*3/uL Absolute Nucleated RBC 0.000 (0.0-0.012) X10*3/uL Nucleated RBC % (auto) 0.0 (0.0-0.2) /100WBC D-Dimer High Sensitivty < 150 NG/ML Sodium 141 (135-145) mmol/L Potassium 5.0 (3.3-5.1) mmol/L Chloride 106 (96-108) mmol/L Carbon Dioxide 29 (22-29) mmol/L Anion Gap 11 L (12-20) BUN 17 H (9-16) mg/dL Creatinine 1.13 (0.5-1.4) mg/dL Estim Creat Clear Calc TNP Estimated GFR > 60 Random Glucose 142 H (60-115) mg/dL Calcium 9.6 (8.4-10.2) mg/dL Total Bilirubin 0.8 (0.0-1.0) mg/dL AST 24 (5-37) U/L ALT 47 H (0-40) U/L Alkaline Phosphatase 43 (39-117) U/L Troponin I High Sens < 2.7 < 2.7 (<3.5-35.0) ng/L B-Natriuretic Peptide 14 (<100) pg/mL Total Protein 7.1 (6.5-8.0) g/dL Albumin 4.3 (3.5-5.0) g/dL Independent Interpretation I performed an independent interpretation of an: EKG (EKG normal sinus rhythm no acute ischemic change are noted with ventricular rate of 60 with a normal DC interval normal QRS duration with QT/QTC interval) and Plain X-Ray (I independently reviewed the x-ray agreeable radiologist reports no acute findings within normal) Radiology Impression Discussion of test interpretation with radiology: I discussed test interpretation with the radiologist and I have reviewed the radiologist's reading. Radiologist Impression: FINDINGS: EKG leads overlie the chest. Generator is seen projected over the left mid chest, obscuring assessment of the underlying tissues. The cardiomediastinal silhouette is within normal limits in size. Lungs bilaterally are symmetrically expanded. There is focal eventration of the anteromedial right hemidiaphragm. There is a punctate nodular density seen in the left mid lung, possibly a small calcified granuloma. Slight thickening of the central airways is seen. No focal consolidation, effusion or pneumothorax is seen. S-shaped thoracolumbar scoliosis. XR/XR chest 2V IMPRESSION: * Slight thickening of the central airways, suggesting reactive airways disease or bronchitis. No focal pneumonia. * Punctate nodular density in the left mid lung, possibly a small calcified granuloma. Independent Historian Clinical information obtained from an independent historian. History obtained from or confirmed by: Spouse External Record Review External record reviewed: Inpatient record, Office record, Outpatient record, Prior outpatient labs, Prior outpatient radiology, Primary care record and Outside ED record All prior records that are in our system that are accessible reviewed by myself Prescription Management I considered prescription management with: Other (Ativan was given) Chronic Conditions Patient?s care impacted by: Other (SVT, PAC) Social Determinants Patient?s care significantly limited by Social Determinants of Health including: Other Social Determinant of Health Discharge Plan Discharge Clinical Impression: Atypical chest pain, Jaw pain, Arm pain, left Patient Disposition: Home, Self-Care Instructions: Chest Pain (DC) Prescriptions: No Action lorazepam 0.5 mg tablet 0.5 mg PO BEDTIME PRN (Reason: anxiety) 30 Days Qty: 23 0RF metoprolol succinate 50 mg tablet extended release 24 hr 50 mg PO DAILY Qty: 90 3RF omeprazole 20 mg capsule,delayed release(DR/EC) 20 mg PO DAILY 90 Days Qty: 90 1RF rosuvastatin 5 mg tablet 5 mg PO DAILY 30 Days Qty: 30 2RF hydroxyzine HCl 50 mg tablet 50 mg PO BID PRN (Reason: itching) 30 Days Qty: 60 2RF gabapentin 300 mg capsule 300 mg PO BEDTIME 30 Days Qty: 30 2RF gabapentin 600 mg tablet 600 mg PO DAILY Referrals: Miky Narayanan MD [Primary Care Provider] - 1 day Stand Alone Forms: Work/School Release Interventions: ED Discharge Assessment Last Done: 11/16/23 09:19 Discharge Date/Time: 11/16/23 09:32
[2023-11-16 07:17] LABS: B Type Natriuretic Peptide 14 pg/mL (<100)
[2023-11-16] MEDS: LORazepam 0.5 MG TABLET PO (07:24)
--- NOTE | 2023-11-16 07:38 | PC.NURSE ---
ASSUMED CARE OF THIS PT. APPEARS IN NAD, RESTING IN STRETCHER. ENDORSES ONGOING CHEST PRESSURE AND NUMBNESS ON L SIDE OF HIS FACE TO EAR. SKIN PWD, LS CLEAR THROUGHOUT, SPEAKING IN CLEAR FULL SENTENCES. THESE HAVE BEEN PERSISTENT SENSATIONS FOR HIM OVER THE PAST FEW WKS. HALTER MONITOR IN PLACE, FOLLOWED BY CARDIOLOGY HERE, RECENT ECHO. ADDITIONAL BLOOD WORK DRAWN, AWAITING CXR. MEDICATED PER EMR. WCTM.
[2023-11-16 07:49] LABS: D Dimer High Sensitivity < 150 NG/ML
[2023-11-16 07:57] VITALS: BP 100/59; PULSE 55; RESP 18; TEMP 36.8; O2SAT 99
[2023-11-16 08:03] LABS: Troponin-I High Sensitivity < 2.7 ng/L (<3.5-35.0)
[2023-11-16 09:19] VITALS: BP 99/54; PULSE 59; RESP 16; TEMP 36.4; O2SAT 98
[2023-11-16] MEDS: LORazepam 1 MG TABLET PO (09:20)
== END 2023-11-16 09:32 | disposition home or self-care (01) ==
PROVIDERS: Physician Assistant Medical; Emergency Provider Emergency Medicine; PCP Family Medicine
DX: R07.9 Chest pain, unspecified (principal); M79.602 Pain in left arm; R68.84 Jaw pain; I47.10 Supraventricular tachycardia, unspecified; Z79.01 Long term (current) use of anticoagulants
CPT/HCPCS: 36415; 71046; 80053; 83880; 84484; 85025; 85379; 93005; 99284; 99285

== ENCOUNTER → 2023-11-16 05:09 | Outpatient (BNV) | payer BC, SELFPAY | PROVIDERS: Emergency Provider Emergency Medicine; PCP Family Medicine; Visit Provider Internal Medicine Cardiovascular Disease | DX: R07.9 Chest pain, unspecified (principal) | CPT/HCPCS: 93010 ==

== ENCOUNTER → 2023-11-28 07:40 | Outpatient (REF) | payer BC, SELFPAY ==
--- NOTE | 2023-11-28 07:43 | CA_ITS ---
Acquisition Time: 2023-11-28 08:08:39 Total Exercise Time: 00:08:25 Test Indications: CHEST PAIN Medications: GABAPENTIN METOPROLOL ROSUVASTATIN HYDROXAZINE LORAZAPAM Protocol: ANDRZEJ Max HR: 141 BPM 85% of Pred: 164 BPM Max BP: 160/060 mmHG Max Work Load: 10.1 METS Exercise stress test with exercise 8 min 25 sec of Andrzej protocol, achieving 85% MPHR, without chest discomfort, with report of mild numbness sensation to left cheek that started during exercise and persisted in recovery, with isolated PVCs, with normotensive response to exercise, without EKG changes meeting criteria for islchemia. In recovery BP dropped to 88/60. He was treated with 4 cups of water and placed in supine position. BP gradually returned to baseline. The numbness sensation of left cheek did continued until test end. At one point, when he was laying back he did report a discomfort in his posterior neck. He adds that the cheek symptom has been intermittent for the last year. No chest area discomfort during entire test. Test reviewed with Dr Correa. Referred By: Chapincito Gomez Overread By: MARIEL RODRÍGUEZ
== END ==
LOC: HO.CARD 07:40
PROVIDERS: PCP Family Medicine; Visit Provider Internal Medicine Cardiovascular Disease
DX: R07.89 Other chest pain (principal); I47.10 Supraventricular tachycardia, unspecified
CPT/HCPCS: 93017

== ENCOUNTER → 2023-11-28 07:43 | Outpatient (BNV) | payer BC, SELFPAY | PROVIDERS: PCP Family Medicine; Visit Provider Nurse Practitioner Family | DX: R07.9 Chest pain, unspecified (principal) | CPT/HCPCS: 93016; 93018 ==

== ENCOUNTER 2023-12-12 13:12 | Outpatient (AMB) | payer BC, SELFPAY ==
--- NOTE | 2023-12-12 13:27 | MHC.OFFVIS ---
Intake Vital Signs 12/12/23 13:28 Height 6 ft 1 in Weight 238 lb 1.588 oz BMI 31.4 BP 120/80 Blood Pressure Location Lt brachial Position Sitting Pulse 63 Intake Visit Reasons: 1 yr f/up Intake Note: 1 year follow-up after holter, stress and ekg c/o fatigue and no engery Elastic Attacher Chainstitch Required: No Allergies citalopram Adverse Reaction (Mild, Verified 09/11/23 14:21) palpitaitons sertraline Adverse Reaction (Mild, Verified 09/11/23 14:21) Palpitations Medication List - Last Reconciled 12/12/23 by Chapincito Gomez MD gabapentin 300 mg PO BEDTIME 30 days gabapentin 600 mg PO DAILY hydroxyzine HCl 50 mg PO BID lorazepam 0.5 mg PO BEDTIME PRN 30 days metoprolol succinate ER 50 mg PO DAILY omeprazole 20 mg PO DAILY 90 days rosuvastatin 5 mg PO DAILY 30 days HPI HPI Comments History of Present Illness Details Juan F comes for follow-up again after full set of testing. He underwent a stress test which at 10 Mets did not show any evidence of ischemia. He had non specific symptoms. He also did not have any significant arrhythmias during exercise. Echocardiogram shows normal structure of the heart. Holter monitor shows occasional PACs. He continues to remain very symptomatic with no specific cardiac complaints. He says that he feels fatigued and tired and does not feel like he wants to get into an exercise program. He said he feels just tired and no interested in doing the same. He thinks he might be deficient in testosterone. He is taking all his medications. [facility] Medical History Biceps muscle tear Surgical History Previous back surgery Family History Mother Stroke Diabetes Other Mental health disorder Substance use disorder Social History Housing: Other (mobile home ) Patient Tobacco Use Status: Current everyday Tobacco user (chewing tobacco) e-Cigarette/Vaping Use: Never Used Second Hand Smoke Exposure: No Current occupational status: employed Current occupational exposures/hazards: No Cognitive needs: No Hearing needs: No Vision needs: No Review of Systems Const Denies chills, Denies fatigue, Denies fever(s), Denies frequent falls, Denies weakness, Denies weight gain and Denies weight loss ENT Denies dizziness Card Denies chest pain, Denies leg edema, Denies lightheadedness, Denies palpitations, Denies dyspnea, Denies dyspnea on exertion, Denies orthopnea and Denies other (loss of consciousness) Resp Denies cough, Denies dyspnea and Denies dyspnea on exertion GI Denies hematochezia and Denies change in stool character Musc Denies abnormal gait, Denies muscle weakness, Denies numbness, Denies radiating pain into limb and Denies tingling Neuro Denies Abnormal speech present, Denies abnormal gait, Denies dizziness, Denies frequent falls, Denies numbness, Denies tingling and Denies weakness Endo Denies fatigue and Denies palpitations Physical Exam Vital Signs: Last Vital Signs Pulse 63 12/12/23 13:28 BP 120/80 12/12/23 13:28 BMI result Body Mass Index 31.4 Const General: cooperative, comfortable, no acute distress, well developed, alert, awake and anxious Nutritional Appearance: average body habitus and well nourished Orientation/consciousness: patient oriented x3 Limitations: no limitations Neck Neck: Yes trachea midline, Yes supple and Yes no JVD Chest Chest palpation & inspection: normal inspection of the chest Resp Effort & Inspection: normal respiratory effort Auscultation: clear to auscultation bilaterally Cardio Jugular venous distension: no JVD Palpation: normal PMI Rate: regular rate Rhythm: regular rhythm Heart sounds: S1 normal heart sound present, S2 normal heart sound present, no click, no gallops, no murmurs and no rubs Peripheral pulses: Peripheral pulses 2+ throughout GI Auscultation: normal bowel sounds Neuro General: patient oriented x3 and no focal motor deficits Speech: No Abnormal speech present Extrem General: Yes no clubbing, cyanosis or edema Psych Appearance: grossly normal Affect: Anxious affect present Assessment & Plan Assessment & Plan (1) Cardiac arrhythmia: Code(s): I49.9 - Cardiac arrhythmia, unspecified Plan: Patient with prior cardiac arrhythmias down only has occasional PACs with no significant runs of SVT. No prolonged symptoms. Continue metoprolol therapy. Stress mitigation strategy and antianxiety therapy may need to be considered. Avoidance of stimulants was discussed. He is complaining of lightheadedness, noted post exercise on the treadmill stress test he has slightly low blood pressure. Advised to increase his water and may be his solute intake a little bit more. Advised to monitor blood pressure at home. He is encouraged to increase activity level gradually and go back to muscle building if he so desires. (2) Hypercholesterolemia: Code(s): E78.00 - Pure hypercholesterolemia, unspecified Plan: Hyperlipidemia. He remains concerned about possible coronary artery disease. We discussed about potentially pursuing coronary calcium score to further guide and intensive therapy if so needed. He is interested in it. Will put in a request for the same. This will help us manage his lipid panel more aggressively if so required. Follow up in the clinic in 1 year's time on his request. Thank you for allowing me to partake in his care Orders: Orders CT Coronary Calcium Score 1 Month Chapincito Gomez MD E78.00 - Pure hypercholesterolemia, unspecified Medications: Changed From hydroxyzine HCl 50 mg PO BID 30 days PRN 60 tabs 2RF itching To hydroxyzine HCl 50 mg PO BID Miky Narayanan MD Coding Level of Care Code Est Pt Level 4 (77686) Diagnoses Cardiac arrhythmia I49.9 Hypercholesterolemia E78.00
[2023-12-12 13:28] VITALS: BP 120/80; PULSE 63; BMI 31.4
== END 2023-12-12 13:55 | disposition home or self-care (01) ==
PROVIDERS: Visit Provider Internal Medicine Cardiovascular Disease
DX: I49.9 Cardiac arrhythmia, unspecified (principal); E78.00 Pure hypercholesterolemia, unspecified
CPT/HCPCS: 99214

== ENCOUNTER → 2023-12-12 13:12 | Outpatient (BNVA) | payer BC, SELFPAY | PROVIDERS: Visit Provider Internal Medicine Cardiovascular Disease ==

== ENCOUNTER → 2024-02-28 07:50 | Outpatient (REF) | payer BC, SELFPAY ==
--- NOTE | ~2024-02-28 | NM_ITS ---
EXERCISE MYOCARDIAL PERFUSION STUDY INDICATION: Coronary disease, assess for ischemia TECHNIQUE: The patient was brought in for an exercise perfusion study on 02/28/2024. Patient performed exercise as per Nahum protocol and was injected 40 mCi of sestamibi once target heart rate was achieved. Images were obtained using the SPECT gamma camera interlaced with the gating device. Images were obtained in supine position. Resting perfusion study was performed on 03/06/2024. Patient was administered 40 mCi of sestamibi intravenously at rest. Images were then obtained in supine position. Images were processed with the software and compared side to side in short axis, horizontal long axis and vertical long axis views. Total DLP 104mGy-cm. FINDINGS: Raw images were reviewed. The stress perfusion study showed mildly diminished tracer uptake in the mid anterior wall. With CT attenuation correction, there is improvement and hence could all be from soft tissue attenuation. The gated study shows normal LV systolic function with calculated LVEF of 60%. LV cavity is normal in size. The gated study shows normal wall thickening and contraction of segments. Resting study shows mildly diminished tracer uptake in the mid anterior wall. Could also be seen with CT attenuation correction. Suspect artifactual etiology. Gating at rest reveals normal wall motion with ejection fraction at 57%. The findings are consistent with fixed mid anterior defect probably from soft tissue attenuation. No clear reversible defects. NM/NM cardiolite stress test IMPRESSION: 1. Myocardial perfusion imaging study shows likely normal myocardial perfusion. 2. Gated LVEF is 60% during stress and 57% during rest. 3. Transient ischemic dilatation not present. EKG component of the test reported separately.
--- NOTE | 2024-02-28 07:58 | CA_ITS ---
Acquisition Time: 2024-02-28 07:51:45 Total Exercise Time: 00:08:12 Test Indications: CAD Medications: GABAPENTIN HYDROXYZINE LORAZAPAM METOPROLOL OMEPRAZOLE ROSUVASTATIN Protocol: ANDRZEJ Max HR: 146 BPM 89% of Pred: 164 BPM Max BP: 172/060 mmHG Max Work Load: 10.4 METS Exercise stress test exercise 8 min 12 sec of Andrzej protocol achieving 89% MPHR, with mild SOB, no chest discomfort, with isolated PACs, with normotensive response to exercise, without EKG changes. Nuclear images pending. Test reviewed with Dr. Gomez Referred By: Chapincito Gomez Overread By: Juana Veronica
== END ==
LOC: HO.CARD 07:50
PROVIDERS: Visit Provider Internal Medicine Cardiovascular Disease
DX: I25.10 Atherosclerotic heart disease of native coronary artery without angina pectoris (principal); I49.9 Cardiac arrhythmia, unspecified; R53.83 Other fatigue; I47.10 Supraventricular tachycardia, unspecified
CPT/HCPCS: 78452; 93017; A9500

== ENCOUNTER → 2024-02-28 07:58 | Outpatient (BNV) | payer BC, SELFPAY | PROVIDERS: Visit Provider Nurse Practitioner | DX: I25.10 Atherosclerotic heart disease of native coronary artery without angina pectoris (principal) | CPT/HCPCS: 78452; 93016; 93018 ==

== ENCOUNTER 2024-06-05 08:37 | Outpatient (AMB) | payer BC, SELFPAY ==
--- NOTE | 2024-06-05 09:06 | A.OFFPC_ITS ---
Vital Signs 06/05/24 09:11 Height 6 ft 1 in Weight 241 lb 2 oz BMI 31.8 BP 118/56 L Blood Pressure Location Rt brachial Position Sitting Respiration 14 Pulse 83 Pulse Source Pulse Oximeter Temp 98.2 F Temp Source Oral Pulse Oximetry (%) 96 Oxygen Delivery Method Room Air Intake Visit Reasons: Physical Intake Note: Physical Allergies citalopram Adverse Reaction (Mild, Verified 09/11/23 14:21) palpitaitons sertraline Adverse Reaction (Mild, Verified 09/11/23 14:21) Palpitations Medication List - Last Reconciled 06/05/24 by Miky Narayanan MD ezetimibe (Zetia) 10 mg PO DAILY gabapentin 300 mg PO BEDTIME 30 days gabapentin 600 mg PO DAILY hydroxyzine HCl 50 mg PO BID lorazepam 0.5 mg PO BEDTIME PRN 30 days metoprolol succinate ER 50 mg PO DAILY omeprazole 20 mg PO DAILY 90 days rosuvastatin 5 mg PO DAILY 30 days Tobacco use date assessed: 06/05/24 Dental Screening Dental Screen Date: 06/05/24 Did you have a dental visit in the last 12 months?: Yes Did you have a dental problem in the last 6 months where you did not have access to dental care?: No Was dental information given to patient?: Patient has dentist HPI Physical HPI Details 58 y/o male presents for a CPE with f/u labs and health maintenance. No recent CPE-labs to review. Some labs drawn 11/16/23. Elevated ALT 47. Hx of pre-diabetes. A1c today 06/05/24 6.1% which worsened from prior. Notes ongoing complaints of fatigue. [facility] Medical History Biceps muscle tear Surgical History Previous back surgery Family History Mother Stroke Diabetes Other Mental health disorder Substance use disorder Social History (Updated 06/05/24 @ 09:09 by Cristino Banegas [facility] Housing: Other (mobile home ) Housing Other:: mobile home Patient Tobacco Use Status: Current everyday Tobacco user (chewing tobacco) Tobacco use type: Smokeless Tobacco e-Cigarette/Vaping Use: Never Used Second Hand Smoke Exposure: No Use of substances other than those prescribed or required for medical reasons: No Current occupational status: employed Current occupation: [employer] Current occupational exposures/hazards: No Cognitive needs: No Hearing needs: No Vision needs: Yes Questionnaire PHQ-9 Over the last 2 weeks, how often have you been bothered by any of the following problems? 1. Little interest or pleasure in doing things: several days 2. Feeling down, depressed, or hopeless: not at all 3. Trouble falling or staying asleep, or sleeping too much: not at all 4. Feeling tired or having little energy: several days 5. Poor appetite or overeating: not at all 6. Feeling bad about yourself - or that you are a failure or have let yourself or your family down: not at all 7. Trouble concentrating on things, such as reading the newspaper or watching television: not at all 8. Moving or speaking so slowly that other people could have noticed. Or the opposite - being so fidgety or restless that you have been moving around a lot more than usual: not at all 9. Thoughts that you would be better off or of hurting yourself in some way: not at all Total score: 2 Depression Screening Interpretation: Negative Depression Screening Done: Yes 74180 - PHQ-9 Billing: Yes Source: Developed by Drs. Paul Taylor, Leah Hopson, Guru Burciaga and colleagues, with an educational ladi from [employer]. Thrive Questionnaire Date Thrive assessed: 06/05/24 I am a: Patient What is your living situation today?: I have a steady place to live Within the past 12 months, did the food you bought not last and you didn't have the money to get more?: Never true Within the past 12 months, did you worry whether your food would run out before you got money to buy more?: Never true Do you have trouble paying for medicines?: No Do you have trouble getting transportation to medical appointments?: No Do you have trouble paying your heating and electricity bill?: No Do you have trouble taking care of your child, family member or friend?: No Do you have trouble with day-to-day activities such as bathing, preparing meals, shopping, managing finances, etc.?: No Are you currently unemployed and looking for a job?: No Are you interested in more education?: No Please select the resources that you would like help with: None Currently or been in a relationship where the following occur: No concerns reported THRIVE Score: 0 AUDIT C Alcohol Use Questionnaire (AUDIT-C) 1. How often do you have a drink containing alcohol?: Never 3. How often do you have six or more drinks on one occasion?: Never Total Score: 0 DREAD-7 AMB Questionnaire DREAD-7 Date DREAD - 7 assessed: 06/05/24 Feeling nervous, anxious, or on edge: 0 = Not at all Not being able to stop or control worryin = Not at all Worrying too much about different things: 0 = Not at all Trouble relaxin = Not at all Being so restless that it is hard to sit still: 0 = Not at all Becoming easily annoyed or irritable: 0 = Not at all Feeling afraid as if something awful might happen: 0 = Not at all Total DREAD-7 score (0-4 normal; 5-9 mild; 10-14 moderate; 15-21 severe): 0 Source: Developed by Drs. Paul Taylor, Leah Hopson, Guru Burciaga and colleagues, with an educational ladi from [employer]. DREAD-7 Assessment Billing DREAD-7 Assessment Tool: DREAD-7 Assessment 68936 Review of Systems Const Denies chills, Reports fatigue, Denies fever(s), Denies headache(s) and Denies weakness Eyes Denies change in vision ENT Denies dizziness, Denies headache(s), Denies hearing loss, Denies nasal congestion, Denies sinus pain, Denies sinus pressure and Denies sore throat Card Denies chest pain, Denies lightheadedness, Denies dyspnea and Denies other (palpitations) Resp Denies cough, Denies dyspnea and Denies wheezing GI Denies abdominal pain, Denies melena, Denies hematochezia, Denies change in bowel habits, Denies dyspepsia and Denies nausea Denies hematuria and Denies dysuria Musc Denies abnormal gait, Denies myalgias, Denies arthralgias, Denies numbness and Denies tingling Skin/Breast Denies rash, Denies unusual bruising and Denies wounds Neuro Denies abnormal gait, Denies dizziness, Denies headache(s), Denies memory loss, Denies numbness, Denies Sensory deficit (Neuro), Denies tingling and Denies weakness Psych Denies anxiety, Denies depression and Denies memory loss Endo Denies cold intolerance, Reports fatigue, Denies heat intolerance, Denies polydipsia and Denies polyuria Jake/Lymph Denies easy bleeding and Denies easy bruising Aller/Immun Denies wheezing Physical exam (Primary Care) Vital Signs: Last Vital Signs Temp 98.2 F 06/05/24 09:11 Pulse 83 06/05/24 09:11 Resp 14 06/05/24 09:11 BP 118/56 L 06/05/24 09:11 Pulse Ox 96 06/05/24 09:11 Oxygen Delivery Method Room Air 06/05/24 09:11 BMI result Body Mass Index 31.8 Tobacco/Smoking Status: Tobacco use Status Tobacco use date assessed 06/05/24 06/05/24 09:14 Patient Tobacco Use Status Current everyday Tobacco ( 06/05/24 09:14 chewing tobacco) Tobacco use type Smokeless Tobacco 06/05/24 09:14 e-Cigarette/Vaping Use Never Used 06/05/24 09:14 PHQ-9: PHQ-9 Score PHQ-9: Total score 2 06/05/24 09:28 Depression Screening Interpretation: Negative Thrive Assessment: Date of Thrive Assessment Date Thrive assessed 06/05/24 06/05/24 09:14 Currently or been in a relationship where the following occur: No concerns reported Const General: no acute distress, well developed, alert and awake Nutritional Appearance: well nourished Orientation/consciousness: patient oriented x3 HENMT Head: Yes normocephalic and Yes atraumatic Ears: hearing grossly normal bilaterally and TM's normal bilaterally General nose exam: Normal external nose present and Normal nares present Mouth: Normal oral and palatal mucosa present and moist mucous membranes Teeth and gingiva: dentition normal Throat: Yes posterior oropharynx normal Eyes General: appearance normal, both eyes and all related structures Pupils: Equal, round and reactive pupils present and Pupil accommodation reflex normal EOM: EOMs intact bilaterally Neck Neck: Yes normal visual inspection, Yes no lymphadenopathy and Yes trachea midline Thyroid: Thyroid normal Carotids: no bruits Lymphatic: no lymphadenopathy noted Chest Chest palpation & inspection: normal inspection of the chest Resp Effort & Inspection: normal respiratory effort Auscultation: clear to auscultation bilaterally Cardio Rate: regular rate Rhythm: regular rhythm Heart sounds: S1 normal heart sound present, S2 normal heart sound present, no gallops, no murmurs and no rubs Bruits: no abdominal aortic bruits and no carotid bruits GI Palpation (GI): No Abdominal aortic bruit present, Soft to palpation, nontender, No hepatosplenomegaly present and No Rebound tenderness present Auscultation: normal bowel sounds General: Yes no CVA tenderness Back/Spine/Pelvis Back: no CVA tenderness Cervical Spine: cervical ROM normal and No Cervical spine tenderness Thoracic/Lumbar Spine: thoraco-lumbar ROM normal, No pain with thoraco-lumbar ROM, No thoracic spinal tenderness and No lumbar spinal tenderness Skin Lesions: no lesions Rashes: no rashes Trauma: no lacerations or abrasions Wounds: no wounds Nails: normal Neuro General: patient oriented x3 Cranial nerves: Yes Equal, round and reactive pupils present Cognition (Neuro): normal cognition Gait exam (Neuro): Normal gait present Motor exam (neuro): 5/5 motor strength present throughout Sensory Exam: No Sensory deficit (Neuro) Deep tendon reflexes (DTR's): Right patellar reflex intensity grade: 2+ and Left patellar reflex intensity grade: 2+ Extrem General: Yes normal to inspection and No edema Psych Appearance: grossly normal Affect: normal affect Attitude: cooperative Thought process: Normal thought process present Coding Level of Care Code Est Pt Level 3 (76360) Est Pt Prev Care 40-64y(32582) Diagnoses Adult general medical exam Z00.00 Pre-diabetes R73.03 Elevated ALT measurement R74.01 Screening for colon cancer Z12.11 Screening for prostate cancer Z12.5 Fatigue R53.83 Additional Codes DREAD-7 Assessment Billing - DREAD-7 Assessment Tool: DREAD-7 Assessment 45840 ([id number]) Assessment & Plan Assessment & Plan (1) Adult general medical exam: Code(s): Z00.00 - Encounter for general adult medical examination without abnormal findings Category: Medical Plan: 58-year-old?male?presents?for?complete?physical?exam Encouraged?healthy?diet?with?active?lifestyle?and?plenty?of?exercise (2) Pre-diabetes: Code(s): R73.03 - Prediabetes Category: Medical Plan: A1c?trini?from?5.7%?at?last?check?to?6.1%?today.??Still?in?pre?diabetes?range Encouraged?a?diet?lower?in?sugars?and?starches (3) Elevated ALT measurement: Code(s): R74.01 - Elevation of levels of liver transaminase levels Category: Medical Plan: Ongoing?a?mildly?elevated?liver?enzymes Will?check?prior?to?next?visit (4) Screening for colon cancer: Code(s): Z12.11 - Encounter for screening for malignant neoplasm of colon Category: Medical Plan: Patient?uncertain?when?his?last?colonoscopy?was ?but?thinks?he?is?due?and?was?told?to?follow-up?in?3?years?from?his?prior Referred?back?to?[facility]gastro[facility]ology (5) Screening for prostate cancer: Code(s): Z12.5 - Encounter for screening for malignant neoplasm of prostate Category: Medical Plan: Followed?by?urology. (6) Fatigue: Code(s): R53.83 - Other fatigue Category: Medical Plan: Patient?has?had?ongoing?and?longstanding?fatigue.??He?has?a?history?of?body?buil ding?and?testosterone?use. Workup?for?low?testosterone?was?negative? and?referral?to?urology?yielded?this?same?results. Patient?says?he?is?going?to?be?getting?this?prescribed?elsewhere, possibly [facility]. Will?continue?to?monitor?lab?work?including?liver?enzymes Orders: Orders Comprehensive [place]. Panel Fast Today Z00.00 - Encounter for general adult medical examination without abnormal findings Lipid Panel Today Z00.00 - Encounter for general adult medical examination without abnormal findings TSH reflex Free T4 Today Z00.00 - Encounter for general adult medical examination without abnormal findings UA and rflx microscopic Today Z00.00 - Encounter for general adult medical examination without abnormal findings Complete Blood Count Auto Diff Today Z00.00 - Encounter for general adult medical examination without abnormal findings Microalbumin, Random (w Creat) Today I10 - Essential (primary) hypertension, Z00.00 - Encounter for general adult medical examination without abnormal findings Referrals Gastroenterology Referral Z12.11 - Encounter for screening for malignant neoplasm of colon
[2024-06-05 09:11] VITALS: BP 118/56; PULSE 83; RESP 14; TEMP 36.8; O2SAT 96; BMI 31.8
== END 2024-06-05 09:49 | disposition home or self-care (01) ==
PROVIDERS: Visit Provider Family Medicine
DX: Z00.00 Encounter for general adult medical examination without abnormal findings (principal); R73.03 Prediabetes; R74.01 Elevation of levels of liver transaminase levels; Z12.11 Encounter for screening for malignant neoplasm of colon; Z12.5 Encounter for screening for malignant neoplasm of prostate; R53.83 Other fatigue

== ENCOUNTER → 2024-06-05 08:37 | Outpatient (BNVA) | payer BC, SELFPAY | PROVIDERS: Visit Provider Family Medicine | DX: Z00.00 Encounter for general adult medical examination without abnormal findings (principal); R73.03 Prediabetes; R74.01 Elevation of levels of liver transaminase levels; R53.83 Other fatigue | CPT/HCPCS: 96127 ==

== ENCOUNTER 2025-02-04 14:20 | Outpatient (AMB) | payer OTHER, SELFPAY ==
--- NOTE | 2025-02-04 14:34 | A.OFFVIS_ITS ---
Vital Signs 02/04/25 14:35 Height 6 ft 1 in Weight 231 lb 7.766 oz BMI 30.5 BP 120/74 Blood Pressure Location Lt brachial Position Sitting Pulse 87 Intake Visit Reasons: Follow up Intake Note: Follow-up with ekg feeling ok has some palpitations at times Peripheral Edp Equipment Operator Required: No Allergies citalopram Adverse Reaction (Mild, Verified 09/11/23 14:21) palpitaitons sertraline Adverse Reaction (Mild, Verified 09/11/23 14:21) Palpitations Medication List - Last Reconciled 02/04/25 by Chapincito Gomez MD ezetimibe 10 mg PO DAILY gabapentin 600 mg PO DAILY gabapentin 300 mg PO BEDTIME 30 days lorazepam 0.5 mg PO BEDTIME PRN 30 days metoprolol succinate ER 50 mg PO DAILY omeprazole 20 mg PO DAILY 90 days rosuvastatin 5 mg PO DAILY 30 days HPI Comments Details: Juan F comes for follow-up. Calcium score last year showed significant calcium buildup and subsequently underwent a myocardial perfusion imaging which was w ithin normal limits suggestive of nonobstructive disease. He denies any exertional chest pain or shortness of breath with high level activity. Does complain of significant fatigue related to metoprolol therapy. Said he feels tired and can not achieve enough energy to do his workout. He has not had any prolonged palpitation although. He occasionally has fluttering in his chest. Has had no recent lipid panel. Says occasionally gets lightheaded, think may be related to dehydration. [facility] Medical History CAD (coronary artery disease) Biceps muscle tear Surgical History Previous back surgery Family History Mother Stroke Diabetes Other Mental health disorder Substance use disorder Social History Housing: Other Housing Other:: mobile home Patient Tobacco Use Status: Current everyday Tobacco user Tobacco use type: Smokeless Tobacco e-Cigarette/Vaping Use: Never Used Second Hand Smoke Exposure: No Current occupational status: employed Current occupation: [employer] Current occupational exposures/hazards: No Cognitive needs: No Hearing needs: No Vision needs: Yes Review of Systems Const Denies chills, Denies fatigue, Denies fever(s), Denies frequent falls, Denies weakness, Denies weight gain and Denies weight loss ENT Denies dizziness Card Denies chest pain, Denies leg edema, Denies lightheadedness, Denies palpitations, Denies dyspnea, Denies dyspnea on exertion, Denies orthopnea and Denies other (loss of consciousness) Resp Denies cough, Denies dyspnea and Denies dyspnea on exertion GI Denies hematochezia and Denies change in stool character Musc Denies abnormal gait, Denies muscle weakness, Denies numbness, Denies radiating pain into limb and Denies tingling Neuro Denies Abnormal speech present, Denies abnormal gait, Denies dizziness, Denies frequent falls, Denies numbness, Denies tingling and Denies weakness Endo Denies fatigue and Denies palpitations Physical Exam Vital Signs: Last Vital Signs Pulse 87 02/04/25 14:35 BP 120/74 02/04/25 14:35 BMI result Body Mass Index 30.5 Const General: cooperative, comfortable, no acute distress, well developed, alert, awake and anxious Nutritional Appearance: average body habitus and well nourished Orientation/consciousness: patient oriented x3 Limitations: no limitations Neck Neck: Yes trachea midline, Yes supple and Yes no JVD Chest Chest palpation & inspection: normal inspection of the chest Resp Effort & Inspection: normal respiratory effort Auscultation: clear to auscultation bilaterally Cardio Jugular venous distension: no JVD Palpation: normal PMI Rate: regular rate Rhythm: regular rhythm Heart sounds: S1 normal heart sound present, S2 normal heart sound present, no click, no gallops, no murmurs and no rubs Peripheral pulses: Peripheral pulses 2+ throughout GI Auscultation: normal bowel sounds Neuro General: patient oriented x3 and no focal motor deficits Speech: No Abnormal speech present Extrem General: Yes no clubbing, cyanosis or edema Psych Appearance: grossly normal Affect: Anxious affect present Office Procedures EKG Details: EKG shows normal sinus rhythm normal EKG with PACs [id number], Complete Assessment & Plan Assessment & Plan (1) CAD (coronary artery disease): Code(s): I25.10 - Atherosclerotic heart disease of [place] coronary artery without angina pectoris Category: Medical Plan: Significant coronary calcium buildup suggestive of coronary atherosclerosis predominantly into vascular distribution with no anginal symptoms. His myocardial perfusion imaging is within normal limits. This is suggestive of nonobstructive coronary artery disease. He is advised to call me with new symptoms. Advise low-dose aspirin therapy. Continue aggressive blood pressure control which is currently well optimized. Continue statin therapy along with ezetimibe therapy. Target goal LDL less than 60 mg/dL. Advised lipid panel in near future along with CRP. Management of coronary atherosclerosis was discussed with him. He understands and agrees. (2) Cardiac arrhythmia: Code(s): I49.9 - Cardiac arrhythmia, unspecified Category: Medical Plan: Cardiac arrhythmias with currently still having PACs and occasional palpitation but no prolonged irregular heartbeat. However he is not tolerating therapy with metoprolol and has significant symptoms of fatigue especially with exercise. Will switch him to Cardizem therapy to still treat his SVT and Mibi improve symptoms of chronotropic incompetence. Discussed with him about this and he is agreeable. Advised to call me with any worsening symptoms of arrhythmias. Holter monitor in 2 weeks time. Avoidance of stimulants was discussed. Stress mitigation strategies were discussed. Will follow up in the clinic otherwise in 1 year's time, sooner p.r.n.. Thank you for allowing me to partake in his care Orders: Orders Lipid Panel Today I25.10 - Atherosclerotic heart disease of [place] coronary artery without angina pectoris CRP High Sensitivity Today E78.5 - Hyperlipidemia, unspecified, I25.10 - Atherosclerotic heart disease of [place] coronary artery without angina pectoris ECG holter monitor 48 hour 2 Weeks I49.9 - Cardiac arrhythmia, unspecified Medications: New diltiazem HCl CD (Cardizem CD) 120 mg PO DAILY 30 caps 11RF Discontinued metoprolol succinate ER Discontinued Reason: Doctor's Order 50 mg PO DAILY 90 tabs 3RF Coding Level of Care Code Est Pt Level 4 (88179) Complex EM visit Add On G2211 Diagnoses CAD (coronary artery disease) I25.10 Cardiac arrhythmia I49.9 CPT Codes EKG - CPT: 07256-[id number], Complete ([id number])
[2025-02-04 14:35] VITALS: BP 120/74; PULSE 87; BMI 30.5
== END 2025-02-04 15:00 | disposition home or self-care (01) ==
LOC: HO.HCS 14:20
PROVIDERS: Visit Provider Internal Medicine Cardiovascular Disease
DX: I25.10 Atherosclerotic heart disease of native coronary artery without angina pectoris (principal); I49.9 Cardiac arrhythmia, unspecified
CPT/HCPCS: 93010; 99214; G2211

== ENCOUNTER → 2025-02-04 14:20 | Outpatient (BNVA) | payer OTHER, SELFPAY | PROVIDERS: Visit Provider Internal Medicine Cardiovascular Disease | DX: I25.10 Atherosclerotic heart disease of native coronary artery without angina pectoris (principal); I10 Essential (primary) hypertension; I49.9 Cardiac arrhythmia, unspecified; I49.3 Ventricular premature depolarization | CPT/HCPCS: 93005 ==

== ENCOUNTER → 2025-02-22 07:13 | Outpatient (REF) | payer OTHER, SELFPAY ==
--- NOTE | 2025-02-22 07:39 | HM_ITS ---
Conclusion: 1. Patient was monitored for total period of 2 days 2. Baseline was normal sinus rhythm with average heart of 84 beats per minute 3. No significant pauses noted 4. Frequent PACs noted with total burden of 2.6% with 1 short run of SVT at 4 beats at 185 beats per minute 5. No patient reported events MTDD
[2025-02-22 08:07] LABS: Cholesterol 101 mg/dL (<200); HDL Cholesterol 37 mg/dL (>40); LDL Cholesterol Calculated 54 mg/dL (<100); Triglycerides 54 mg/dL (<150)
[2025-02-25 19:04] LABS: CRP High Sensitivity 0.2 mg/L
== END ==
LOC: HO.CARD 07:13
PROVIDERS: PCP Family Medicine; Visit Provider Internal Medicine Cardiovascular Disease
DX: I49.9 Cardiac arrhythmia, unspecified (principal); I25.10 Atherosclerotic heart disease of native coronary artery without angina pectoris; E78.5 Hyperlipidemia, unspecified
CPT/HCPCS: 36415; 80061; 86141; 93225

== ENCOUNTER → 2025-02-22 07:39 | Outpatient (BNV) | payer OTHER, SELFPAY | PROVIDERS: PCP Family Medicine; Visit Provider Internal Medicine Cardiovascular Disease | DX: I49.1 Atrial premature depolarization (principal); I47.10 Supraventricular tachycardia, unspecified | CPT/HCPCS: 93227 ==

== ENCOUNTER 2025-06-04 11:41 | Outpatient (REF) | payer OTHER, SELFPAY ==
[2025-06-08 09:37] LABS: Lyme Abs Screen <0.90 index
== END 2025-06-04 11:42 | disposition home or self-care (01) ==
LOC: HO.WFDLDS 11:41
PROVIDERS: PCP Family Medicine; Visit Provider Family Medicine
DX: R73.03 Prediabetes (principal); Z12.5 Encounter for screening for malignant neoplasm of prostate; I25.10 Atherosclerotic heart disease of native coronary artery without angina pectoris; E78.00 Pure hypercholesterolemia, unspecified; E78.6 Lipoprotein deficiency; R74.8 Abnormal levels of other serum enzymes; W57.XXXA Bitten or stung by nonvenomous insect and other nonvenomous arthropods, initial encounter; Z72.0 Tobacco use
CPT/HCPCS: 36415; 83036; 86617; 86618; 96127

== ENCOUNTER 2025-06-04 11:41 | Outpatient (AMB) | payer OTHER, SELFPAY ==
--- NOTE | 2025-06-04 12:13 | A.OFFPC_ITS ---
Vital Signs 06/04/25 12:19 Height 6 ft 1 in Weight 219 lb BMI 28.9 BP 116/68 Blood Pressure Location Rt brachial Position Sitting Respiration 14 Pulse 77 Pulse Source Pulse Oximeter Temp 98.4 F Temp Source Temporal Artery Scan Pulse Oximetry (%) 97 Oxygen Delivery Method Room Air Intake Visit Reasons: f/u pre-diabetes, chronic conditions - See comment Allergies citalopram Adverse Reaction (Mild, Verified 06/04/25 12:17) palpitaitons sertraline Adverse Reaction (Mild, Verified 06/04/25 12:17) Palpitations Medication List - Last Reconciled 06/04/25 by Miky Narayanan MD diltiazem HCl CD 120 mg PO DAILY ezetimibe 10 mg PO DAILY gabapentin 600 mg PO DAILY gabapentin 300 mg PO BEDTIME 30 days lorazepam 0.5 mg PO BEDTIME PRN 30 days omeprazole 20 mg PO DAILY 90 days rosuvastatin 5 mg PO DAILY 30 days Tobacco use date assessed: 06/04/25 Dental Screening Dental Screen Date: 06/04/25 Did you have a dental visit in the last 12 months?: Yes Did you have a dental problem in the last 6 months where you did not have access to dental care?: No Was dental information given to patient?: Patient has dentist HPI f/u pre-diabetes, chronic conditions - See comment HPI Details 59 y/o male presents to f/u prediabetes, chronic conditions. BP today 116/68, 77p. A1c today 06/04/25 5.6%. He is on ezetimibe 10mg, rosuvastatin 50mg for his lipids. 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 1. Little interest or pleasure in doing things: several days 2. Feeling down, depressed, or hopeless: not at all 3. Trouble falling or staying asleep, or sleeping too much: several days 4. Feeling tired or having little energy: several days 5. Poor appetite or overeating: not at all 6. Feeling bad about yourself - or that you are a failure or have let yourself or your family down: not at all 7. Trouble concentrating on things, such as reading the newspaper or watching television: not at all 8. Moving or speaking so slowly that other people could have noticed. Or the opposite - being so fidgety or restless that you have been moving around a lot more than usual: not at all 9. Thoughts that you would be better off or of hurting yourself in some way: not at all Total score: 3 Source: Developed by Drs. Paul Taylor, Leah Hopson, Guru Burciaga and colleagues, with an educational ladi from [employer]. Thrive Questionnaire Date Thrive assessed: 06/05/24 I am a: Patient What is your living situation today?: I have a steady place to live Within the past 12 months, did the food you bought not last and you didn't have the money to get more?: Never true Within the past 12 months, did you worry whether your food would run out before you got money to buy more?: Never true Do you have trouble paying for medicines?: No Do you have trouble getting transportation to medical appointments?: No Do you have trouble paying your heating and electricity bill?: I choose not to answer this question Do you have trouble taking care of your child, family member or friend?: I choose not to answer this question Do you have trouble with day-to-day activities such as bathing, preparing meals, shopping, managing finances, etc.?: No Are you currently unemployed and looking for a job?: I choose not to answer this question Are you interested in more education?: No Please select the resources that you would like help with: None Currently or been in a relationship where the following occur: No concerns reported THRIVE Score: 0 AUDIT C Alcohol Use Questionnaire (AUDIT-C) 1. How often do you have a drink containing alcohol?: Never Total Score: 0 DREAD-7 AMB Questionnaire DREAD-7 Date DREAD - 7 assessed: 06/05/24 Feeling nervous, anxious, or on edge: 1 = Several days Not being able to stop or control worryin = Several days Worrying too much about different things: 0 = Not at all Trouble relaxin = Not at all Being so restless that it is hard to sit still: 0 = Not at all Becoming easily annoyed or irritable: 0 = Not at all Feeling afraid as if something awful might happen: 0 = Not at all Total DREAD-7 score (0-4 normal; 5-9 mild; 10-14 moderate; 15-21 severe): 2 Source: Developed by Drs. Paul Taylor, Leah Hopson, Guru Burciaga and colleagues, with an educational ladi from [employer]. Review of Systems Const Denies chills, Denies fatigue, Denies fever(s), Denies headache(s) and Denies weakness ENT Denies dizziness and Denies headache(s) Card Denies dyspnea Resp Denies cough, Denies dyspnea, Denies wheezing and Denies other (shortness of breath) Musc Denies numbness and Denies tingling Neuro Denies dizziness, Denies headache(s), Denies numbness, Denies tingling and Denies weakness Psych Denies anxiety and Denies depression Endo Denies fatigue Aller/Immun Denies wheezing Physical exam (Primary Care) Vital Signs: Last Vital Signs Temp 98.4 F 06/04/25 12:19 Pulse 77 06/04/25 12:19 Resp 14 06/04/25 12:19 BP 116/68 06/04/25 12:19 Pulse Ox 97 06/04/25 12:19 Oxygen Delivery Method Room Air 06/04/25 12:19 BMI result Body Mass Index 28.9 Tobacco/Smoking Status: Tobacco use Status Tobacco use date assessed 06/04/25 06/04/25 12:22 Patient Tobacco Use Status Current everyday Tobacco 06/04/25 12:19 Tobacco use type Smokeless Tobacco 06/04/25 12:19 e-Cigarette/Vaping Use Never Used 06/04/25 12:19 PHQ-9: PHQ-9 Score PHQ-9: Total score 3 06/04/25 12:25 Thrive Assessment: Date of Thrive Assessment Date Thrive assessed 06/05/24 06/04/25 12:15 Currently or been in a relationship where the following occur: No concerns reported Const General: well developed; No acute distress Nutritional Appearance: well nourished Orientation/consciousness: patient oriented x3 HENMT Head: Yes normocephalic and Yes atraumatic Eyes General: appearance normal, both eyes and all related structures Pupils: Equal, round and reactive pupils present EOM: EOMs intact bilaterally Resp Effort & Inspection: normal respiratory effort Neuro General: patient oriented x3 and gait normal Cranial nerves: Yes Equal, round and reactive pupils present Psych Affect: normal affect Results AMB Hemoglobin A1c AMB Hemoglobin A1c 5.6 % Last Edit by Elisha Vieira CMA on 06/04/25 12:24 Results Reviewed Results Reviewed: Laboratory Last Values Hgb A1c (Clinic) 5.6 % (4.0-6.0) 06/04/25 12:22 Coding Level of Care Code Est Pt Level 4 (44864) Diagnoses Pre-diabetes R73.03 CAD (coronary artery disease) I25.10 Hypercholesterolemia E78.00 Low HDL (under 40) E78.6 Tick bite W57.XXXA Elevated liver enzymes R74.8 Screening for prostate cancer Z12.5 Chews tobacco Z72.0 Assessment & Plan Assessment & Plan (1) Pre-diabetes: Code(s): R73.03 - Prediabetes Category: Medical Plan: Recent A1c 5.6% Stable Will continue to monitor (2) CAD (coronary artery disease): Code(s): I25.10 - Atherosclerotic heart disease of [place] coronary artery without angina pectoris Category: Medical Plan: History of coronary artery disease. He is on rosuvastatin and Zetia LDL cholesterol goal is less than 60; LDL was 41 at last check; well controlled HDL was slightly low - work at [employer] more [place] 3 fatty acids in diet Encouraged exercise Maintain good blood pressure control Follow-up with Cardiology as recommended (3) Hypercholesterolemia: Code(s): E78.00 - Pure hypercholesterolemia, unspecified Category: Medical Plan: As above (4) Low HDL (under 40): Code(s): E78.6 - Lipoprotein deficiency Category: Medical Plan: As above (5) Tick bite: Code(s): W57.XXXA - Bitten or stung by nonvenomous insect and other nonvenomous arthropods, initial encounter Category: Medical Plan: Patient has a few lesions on his skin which look like the look reaction of tick bites He notes he has had tick bites He has also had a history of fatigue Checking Lyme titers (6) Elevated liver enzymes: Code(s): R74.8 - Abnormal levels of other serum enzymes Category: Medical Plan: Previously had mildly elevated liver enzymes Now back in normal range (7) Screening for prostate cancer: Code(s): Z12.5 - Encounter for screening for malignant neoplasm of prostate Category: Medical Plan: PSA was within range Should continue annual screening (8) Chews tobacco: Code(s): Z72.0 - Tobacco use Category: Social Hx Plan: Weaning down chewing tobacco and working on quitting Encouraged this Plan History of testosterone hormone therapy from outside provider who manages his medication and follows up labs. Orders: Orders AMB Hemoglobin A1c Today R73.03 - Prediabetes Lyme IgG/IgM w/reflex to WB Today W57.XXXA - Bitten or stung by nonvenomous insect and other nonvenomous arthropods, initial encounter
[2025-06-04 12:19] VITALS: BP 116/68; PULSE 77; RESP 14; TEMP 36.9; O2SAT 97; BMI 28.9
== END 2025-06-04 12:46 | disposition home or self-care (01) ==
LOC: HO.HMCFM 11:42
PROVIDERS: PCP Family Medicine; Visit Provider Family Medicine
DX: R73.03 Prediabetes (principal); I25.10 Atherosclerotic heart disease of native coronary artery without angina pectoris; E78.00 Pure hypercholesterolemia, unspecified; E78.6 Lipoprotein deficiency; W57.XXXA Bitten or stung by nonvenomous insect and other nonvenomous arthropods, initial encounter; R74.8 Abnormal levels of other serum enzymes; Z12.5 Encounter for screening for malignant neoplasm of prostate; Z72.0 Tobacco use

== ENCOUNTER 2025-08-04 17:32 | Emergency (ER) | payer OTHER, SELFPAY ==
--- NOTE | 2025-08-04 17:36 | ECG_ITS ---
Test Reason : CHEST PAIN Blood Pressure : */* mmHG Vent. Rate : 143 BPM Atrial Rate : * BPM P-R Int : * ms QRS Dur : 92 ms QT Int : 302 ms P-R-T Axes : * 40 29 degrees QTcB Int : 466 ms Atrial fibrillation with rapid ventricular response Abnormal ECG When compared with ECG of 16-Nov-2023 05:09, Atrial fibrillation has replaced Sinus rhythm Vent. rate has increased by 83 bpm Nonspecific T wave abnormality has replaced inverted T waves in Inferior leads Referred By: Iván Lane Electronically Signed By: SADIA WISE
[2025-08-04 17:55] VITALS: BP 93/59; PULSE 150; RESP 18; TEMP 36.8; O2SAT 100; BMI 29.8
[2025-08-04 18:18] LABS: MANUAL DIFF FLAG NO
[2025-08-04 18:21] LABS: Hematocrit 53.5 % (42.0-52.0); Hemoglobin 18.9 g/dl (14.0-18.0); Imm Gran Abs Auto 0.03 X10*3/uL (0.00-0.03); Imm Gran Pct Auto 0.3 % (0.0-0.4); Lymphocytes Absolute Auto 2.7 X10*3/uL (1.2-4.9); Mean Corpuscular HGB Conc 35.3 g/dl (31.0-36.0); Mean Corpuscular Hemoglobin 29.8 pg (27.0-33.0); Mean Corpuscular Volume 84.4 fL (80.0-98.0); NRBC Abs Auto 0.000 X10*3/uL (0.0-0.012); NRBC Pct Auto 0.0 /100WBC (0.0-0.2); Platelet Count 212 X10*3/uL (160-400); Red Blood Count 6.34 X10*6/uL (4.60-5.80); White Blood Count 9.7 X10*3/uL (4.8-10.8)
[2025-08-04 18:27] VITALS: BP 121/53; PULSE 128
[2025-08-04 18:29] LABS: INTERNATIONAL NORM RATIO 0.9 (0.9-1.1); Prothrombin Time 10.7 SEC (11.2-13.5)
[2025-08-04 18:32] VITALS: BP 110/73; PULSE 112; RESP 17; O2SAT 98
[2025-08-04 18:32] LABS: Partial Thromboplastin Time 25.1 SEC (26.7-34.1)
[2025-08-04 18:38] LABS: Alanine Aminotransferase 56 U/L (0-40); Albumin Level 4.5 g/dL (3.5-5.0); Alkaline Phosphatase 44 U/L (39-117); Anion Gap 13 (12-20); Aspartate Amino Transferase 43 U/L (5-37); Blood Urea Nitrogen 22 mg/dL (9-16); Calcium 9.4 mg/dL (8.4-10.2); Carbon Dioxide 22 mmol/L (22-29); Chloride 109 mmol/L (96-108); Creatinine Clr Calc Pharmacy 83.7; Estimated Glomerular Filt Rate > 60; Magnesium 2.0 mg/dL (1.6-2.6); Potassium 4.4 mmol/L (3.3-5.1); Sodium 140 mmol/L (135-145); Total Protein 6.9 g/dL (6.5-8.0)
[2025-08-04 18:40] VITALS: BP 101/65; PULSE 89; RESP 16; O2SAT 98
[2025-08-04 18:47] LABS: Troponin-I High Sensitivity < 2.7 ng/L (<3.5-35.0)
--- NOTE | 2025-08-04 18:56 | ED_ITS ---
HPI - General Adult General Chief complaint: Arrhythmia/Palpitations Stated complaint: racing pulse, heart palpitations Time Seen by Provider: 08/04/25 18:03 Source: patient, family, RN notes reviewed and old records reviewed Mode of arrival: ambulatory Limitations: no limitations History of Present Illness ED Provider: Marnie HPI narrative: 59-year-old male past medical history significant for paroxysmal AFib not anticoagulated, coronary artery disease, prediabetes, hyperlipidemia, GERD, history of SVT on diltiazem presents for evaluation of palpitations. The patient reports that he was on the couch prior to arrival and started to feel as if his heart was racing pain This is happened in the past. His EKG shows rapid AFib with RVR up to 143. He denies any chest pain or shortness of breath but does endorse a lightheaded sensation and he can feel his heart racing. Denies any leg swelling. He reports that he does not use stimulants due to the history of SVT. He works out frequently He reports that he has had poor oral intake over last couple of days he is not drinking lots of water which he does typically do. He was working using [employer] and shoveling due to the snow storm that happened yesterday. He reports significant anxiety at baseline Related Data Home Medications ?Medication ?Instructions ?Recorded ?Confirmed gabapentin 600 mg tablet 600 mg PO DAILY 05/03/2211/24 Previous Rx's ?Medication ?Instructions ?Recorded omeprazole 20 mg capsule,delayed 20 mg PO DAILY 90 day s #90 caps 12/08/24 release diltiazem HCl 120 mg 120 mg PO DAILY #90 caps capsule,extended release 24 hr ezetimibe 10 mg tablet 10 mg PO DAILY #90 tabs 02/24 rosuvastatin 5 mg tablet 5 mg PO DAILY 30 days #30 ta bs 06/08/25 trazodone 50 mg tablet 50 mg PO BEDTIME PRN sleep 3 0 days 06/23/25 #30 tabs gabapentin 300 mg capsule 300 mg PO BEDTIME 30 days #3 0 caps 07/26/25 lorazepam 0.5 mg tablet 0.5 mg PO BEDTIME PRN anxiet y 30 08/02/25 days #30 tabs apixaban 5 mg (74 tabs) tablets in 5 mg PO BID #74 ea 08/04/25 a dose pack (Eliquis DVT-PE Treat 30D Start) digoxin 125 mcg (0.125 mg) tablet 125 mcg PO DAILY #7 tabs 08/04/25 Allergies Allergy/AdvReac Type Severity Reaction Status Date / Time citalopram AdvReac Mild palpitaiton Verified 08/04/25 17:58 s sertraline AdvReac Mild Palpitation Verified 08/04/25 17:58 s Review of Systems 2 Constitutional: Constitutional: Reports as per HPI, Denies chills, Denies fatigue, Denies fever(s) and Denies headache(s) ENT: Denies headache(s) Cardiovascular: Cardiovascular: Reports rapid heart rate, Reports lightheadedness and Reports palpitations Gastrointestinal: Gastrointestinal: Denies abdominal pain, Denies constipation and Denies vomiting Genitourinary: Genitourinary: Denies difficulty urinating and Denies dysuria Neurologic: Denies headache(s) and Denies focal weakness Endocrine: Endocrine: Denies fatigue and Reports palpitations [facility] Past Medical History Medical History CAD (coronary artery disease) Biceps muscle tear Surgical History Previous back surgery Family History Family History Mother Stroke Diabetes Other Mental health disorder Substance use disorder Social History Social History (Updated 06/04/25 @ 12:19 by Elisha Vieira CMA) Housing: Other Housing Other:: mobile home Alcohol intake: never Patient Tobacco Use Status: Current everyday Tobacco user Tobacco use type: Smokeless Tobacco e-Cigarette/Vaping Use: Never Used Second Hand Smoke Exposure: No Advance Directives: No Advance Directives Information Provided: Yes Do you have a plan to hurt others: No Plan Current occupational status: employed Current occupation: [employer] Current occupational exposures/hazards: No Cognitive needs: No Hearing needs: No Vision needs: Yes Physical Exam ED Vital Signs: Vital Signs - 24 hr 08/04/25 17:55 08/04/25 18:27 08/04/25 18:32 Temperature 98.2 F Pulse Rate 150 H 128 H 112 H Respiratory Rate 18 17 Blood Pressure 93/59 L 121/53 L 110/73 Pulse Oximetry 100 98 Oxygen Delivery Method Room Air Room Air 08/04/25 18:40 08/04/25 19:48 Temperature 97.8 F Pulse Rate 89 92 Respiratory Rate 16 20 Blood Pressure 101/65 110/65 Pulse Oximetry 98 94 Oxygen Delivery Method Room Air Room Air BMI result Body Mass Index 29.8 Const General: healthy appearing, comfortable, no acute distress, alert and awake Nutritional Appearance: well nourished Orientation/consciousness: patient oriented x3 HENMT Head: Yes normocephalic and Yes atraumatic Eyes Eyelids: Yes eyelids normal Conjunctivae: conjunctivae normal Sclerae: sclerae normal Corneas: corneas normal Pupils: Equal, round and reactive pupils present EOM: EOMs intact bilaterally Neck Neck: Yes full ROM Resp Effort & Inspection: normal respiratory effort, able to speak in complete sentences, no audible wheezes and not labored Auscultation: clear to auscultation bilaterally Cardio Rate: tachycardic Rhythm: abnormal rhythm irregularly irregular GI Inspection: No distended Palpation (GI): Soft to palpation, not firm, nontender, no guarding and not rigid Skin General skin exam: elasticity normal Neuro General: patient oriented x3 Cranial nerves: Yes Equal, round and reactive pupils present and Yes Bilaterally intact EOM present Cognition (Neuro): normal cognition Extrem Other: Moving all extremities well without any obvious deformities Course Reevaluation(s) Reevaluation #1: The patient re-evaluated, heart rate now down to 90s to about 108. Blood pressure remaining stable. The patient is quite hemoconcentrated and reports poor oral intake for the last couple of days. We will treat with IV hydration. He is also complaining of anxiety. He takes lorazepam at home we will give him a 1 time dose of lorazepam in the ER. Time: 18:57 Reevaluation #2: The patient has remained rate controlled in about the 90s for the last 2 hours. Repeat EKG confirms the patient is still in AFib. I discussed with Cardiology, Dr Smith who recommends starting Eliquis, a dose of digoxin and the patient should follow up in the office tomorrow morning. This was discussed with the patient. All questions were answered Time: 21:20 Medications Administered Discontinued Medications Generic Name Dose Route Start Last Admin Trade Name Freq PRN Reason Stop Dose Admin Diltiazem HCl 20 mg 08/04/25 18:19 08/04/25 18:27 Diltiazem Hcl 50 Mg/10 Ml Vial IVPUSH 08/04/25 18:20 20 mg STAT STA Administration Sodium Chloride 1,000 mls @ 999 mls/hr 08/04/25 18:30 08/04/25 19:38 Ns IV 08/04/25 19:30 Infused .Q1H1M JESSICA Infusion Sodium Chloride 1,000 mls @ 999 mls/hr 08/04/25 18:45 08/04/25 19:11 Ns IV 08/04/25 19:45 999 mls/hr .Q1H1M JESSICA Administration Lorazepam 1 mg 08/04/25 18:49 08/04/25 19:11 Lorazepam 1 Mg Tablet PO 08/04/25 18:50 1 mg ONCE ONE Administration Medical Decision Making Medical Decision Making [facility] Narrative: 59-year-old male past medical history as above. The patient reports he has had similar episodes in the past, his documentation reports history of SVT, nonspecifically atrial fibrillation. He is not anticoagulated. He does take diltiazem he reports being compliant with the today. We will check basic labs, we will treat with diltiazem. The patient's initial blood pressure was soft at 93/59. This improved without intervention and I have self it is appropriate to give diltiazem. With the patient denies any chest pain, shortness of breath. His labs show an elevated hemoglobin hematocrit to 18.9 and 53.5 respectively, this may be due to over exertion and for oral intake, dehydration/hemoconcentration. This could be contributing to his tachycardia and ultimately arrhythmia today. We will treat with IV fluids. The patient has no history of heart failure. His BUN is also elevated to 22 with a creatinine of 1.19, this also supports the idea of a mild dehydration. Plan for close observation Differential Diagnosis Differential Diagnoses: The differential diagnosis associated with the presentation includes Atrial fibrillation Dehydration MARCEL Cardiac arrhythmia Admission/Observation Consideration of admission/observation: Escalation of care including admission/observation considered Lab Data [facility] Lab Attestation statement: I reviewed the patient's lab results. As above 08/04/25 18:04 08/04/25 18:04 Labs: Lab Results 08/04/25 Range/Units 18:04 WBC 9.7 (4.8-10.8) X10*3/uL RBC 6.34 H (4.60-5.80) X10*6/uL Hgb 18.9 H (14.0-18.0) g/dl Hct 53.5 H (42.0-52.0) % MCV 84.4 (80.0-98.0) fL MCH 29.8 (27.0-33.0) pg MCHC 35.3 (31.0-36.0) g/dl RDW 13.3 (11.0-16.0) % Plt Count 212 (160-400) X10*3/uL MPV 10.1 (9.4-12.4) fL Immature Gran % (Auto) 0.3 (0.0-0.4) % Neut % (Auto) 60.2 (45-73) % Lymph % (Auto) 27.4 (20-40) % [place] % (Auto) 9.5 (2-11) % Eos % (Auto) 2.2 (0-4) % Baso % (Auto) 0.4 (0-2) % Lymph # (Auto) 2.7 (1.2-4.9) X10*3/uL [place] # (Auto) 0.9 (0.1-1.2) X10*3/uL Eos # (Auto) 0.2 (0.0-0.4) X10*3/uL Baso # (Auto) 0.0 (0.0-0.2) X10*3/uL Abs Immat Gran (auto) 0.03 (0.00-0.03) X10*3/uL Absolute Neuts (auto) 5.9 (2.0-8.3) x10*3/uL Absolute Nucleated RBC 0.000 (0.0-0.012) X10*3/uL Nucleated RBC % (auto) 0.0 (0.0-0.2) /100WBC PT 10.7 L (11.2-13.5) SEC INR 0.9 (0.9-1.1) APTT 25.1 L (26.7-34.1) SEC Sodium 140 (135-145) mmol/L Potassium 4.4 (3.3-5.1) mmol/L Chloride 109 H (96-108) mmol/L Carbon Dioxide 22 (22-29) mmol/L Anion Gap 13 (12-20) BUN 22 H (9-16) mg/dL Creatinine 1.19 (0.5-1.4) mg/dL Estim Creat Clear Calc 83.7 Estimated GFR > 60 Random Glucose 123 H (60-115) mg/dL Calcium 9.4 (8.4-10.2) mg/dL Magnesium 2.0 (1.6-2.6) mg/dL Total Bilirubin 0.8 (0.0-1.0) mg/dL AST 43 H (5-37) U/L ALT 56 H (0-40) U/L Alkaline Phosphatase 44 (39-117) U/L Troponin I High Sens < 2.7 (<3.5-35.0) ng/L Total Protein 6.9 (6.5-8.0) g/dL Albumin 4.5 (3.5-5.0) g/dL Independent Interpretation I performed an independent interpretation of an: EKG (Atrial fibrillation with a rate of 143 beats minute.) Discharge Plan Discharge Clinical Impression: Atrial fibrillation with rapid ventricular response Patient Disposition: Home, Self-Care Instructions: A-fib (Atrial Fibrillation) (ED), Blood Thinners (ED) Additional Instructions: You are an abnormal heart rhythm called atrial fibrillation. I recommend taking all your medications that are currently prescribed as prescribed pain I added Eliquis which is a blood thinner and digoxin per recommendations from Cardiology to help control your heart rate. Call the office tomorrow morning Do not go to the gym tomorrow or until Cardiology clears you. Return for new or worsening symptoms Prescriptions: New digoxin 125 mcg (0.125 mg) tablet 125 mcg PO DAILY Qty: 7 0RF Eliquis DVT-PE Treat 30D Start 5 mg (74 tabs) tablets,dose pack 5 mg PO BID Qty: 74 0RF No Action omeprazole 20 mg capsule,delayed release(DR/EC) 20 mg PO DAILY 90 Days Qty: 90 2RF diltiazem HCl 120 mg capsule,extended release 24hr 120 mg PO DAILY Qty: 90 3RF ezetimibe 10 mg tablet 10 mg PO DAILY Qty: 90 3RF rosuvastatin 5 mg tablet 5 mg PO DAILY 30 Days Qty: 30 2RF trazodone 50 mg tablet 50 mg PO BEDTIME PRN (Reason: sleep) 30 Days Qty: 30 0RF gabapentin 300 mg capsule 300 mg PO BEDTIME 30 Days Qty: 30 2RF lorazepam 0.5 mg tablet 0.5 mg PO BEDTIME PRN (Reason: anxiety) 30 Days Qty: 30 0RF gabapentin 600 mg tablet 600 mg PO DAILY Print Language: Bengali
[2025-08-04 19:48] VITALS: BP 110/65; PULSE 92; RESP 20; TEMP 36.6; O2SAT 94
--- NOTE | 2025-08-04 20:43 | ECG_ITS ---
Test Reason : REPEAT (ARRYTHMIA) Blood Pressure : */* mmHG Vent. Rate : 92 BPM Atrial Rate : * BPM P-R Int : * ms QRS Dur : 96 ms QT Int : 350 ms P-R-T Axes : * 38 17 degrees QTcB Int : 432 ms Atrial fibrillation Abnormal ECG When compared with ECG of 04-Aug-2025 17:44, Vent. rate has decreased by 51 bpm Referred By: Haresh Dye Electronically Signed By: SADIA WISE
[2025-08-04 21:49] VITALS: BP 110/65; PULSE 92; RESP 20; TEMP 36.6; O2SAT 94
== END 2025-08-04 21:50 | disposition home or self-care (01) ==
PROVIDERS: Emergency Provider Emergency Medicine; PCP Family Medicine
DX: I48.20 Chronic atrial fibrillation, unspecified (principal); R00.2 Palpitations; I25.10 Atherosclerotic heart disease of native coronary artery without angina pectoris; E78.5 Hyperlipidemia, unspecified
CPT/HCPCS: 36415; 80053; 83735; 84484; 85025; 85610; 85730; 93005; 96361; 96374; 99284; 99285; J1163

== ENCOUNTER → 2025-08-04 17:36 | Outpatient (BNV) | payer OTHER, SELFPAY | PROVIDERS: Emergency Provider Emergency Medicine; PCP Family Medicine; Visit Provider Internal Medicine | DX: I48.91 Unspecified atrial fibrillation (principal) | CPT/HCPCS: 93010 ==

== ENCOUNTER 2025-08-05 08:57 | Outpatient (AMB) | payer OTHER, SELFPAY ==
[2025-08-05 09:05] VITALS: BP 90/60; PULSE 85; BMI 29.8
--- NOTE | 2025-08-05 09:05 | A.OFFVIS_ITS ---
Vital Signs 08/05/25 09:05 Height 6 ft Weight 220 lb 0.341 oz BMI 29.8 BP 90/60 Blood Pressure Location Lt brachial Position Sitting Pulse 85 Pulse Source Monitor Intake Visit Reasons: [facility] [place]. 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 Required: No Allergies citalopram Adverse Reaction (Mild, Verified 08/05/25 09:08) palpitaitons sertraline Adverse Reaction (Mild, Verified 08/05/25 09:08) Palpitations Medication List - Last Reconciled 08/05/25 by GRICEL Chin aspirin 81 mg PO DAILY diltiazem HCl CD 120 mg PO DAILY ezetimibe 10 mg PO DAILY gabapentin 600 mg PO DAILY gabapentin 300 mg PO BEDTIME 30 days lorazepam 0.5 mg PO BEDTIME PRN 30 days omeprazole 20 mg PO DAILY 90 days rosuvastatin 5 mg PO DAILY 30 days HPI HPI [facility] [place] Details: The patient is a 59 year old male presenting for follow-up for a new finding of atrial fibrillation. He experienced an episode of a rapid, irregular heartbeat yesterday while sitting on the couch, prompting an ER visit where atrial fibrillation was confirmed by EKG. In the ER, his heart rate was over 170 bpm and he was treated with IV diltiazem for rate control, which brought his heart rate down to 80-110 bpm. He was discharged around 10 PM with his usual medications plus new prescriptions for digoxin and a blood thinner. The patient believes he converted back to a normal rhythm around 6 AM this morning. Potential triggers for the episode include poor sleep, dehydration, physical exertion (plowing), increased caffeine intake (two coffees), and a high -salt meal. His past medical history is significant for premature atrial contractions (PACs), supraventricular tachycardia (SVT), and coronary artery disease with an elevated coronary calcium score. He also has prediabetes, no history of stroke or blood clots, and obstructive sleep apnea for which he consistently uses a CPAP machine. He takes diltiazem 120 mg daily and cholesterol medications. 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 He is also on testosterone replacement therapy. He works out in a gym routinely. [facility] Medical History CAD (coronary artery disease) Biceps muscle tear Surgical History Previous back surgery Family History Mother Stroke Diabetes Other Mental health disorder Substance use disorder Social History (Updated 06/04/25 @ 12:19 by Elisha Vieira CMA) Housing: Other Housing Other:: mobile home Alcohol intake: never Patient Tobacco Use Status: Current everyday Tobacco user Tobacco use type: Smokeless Tobacco e-Cigarette/Vaping Use: Never Used Second Hand Smoke Exposure: No Current occupational status: employed Current occupation: [employer] Current occupational exposures/hazards: No Cognitive needs: No Hearing needs: No Vision needs: Yes Review of Systems Const All systems reviewed & are unremarkable except as noted in HPI and below ENT Denies dizziness Card Denies chest pain, Denies chest pain at rest, Denies chest pain with activity, Reports rapid heart rate, Denies pedal edema, Denies edema, Denies leg edema, Denies lightheadedness, Denies palpitations, Denies dyspnea, Denies dyspnea on exertion and Denies orthopnea Resp Denies cough, Denies dyspnea and Denies dyspnea on exertion GI Denies hematochezia and Denies change in stool character Musc Denies abnormal gait, Denies limited range of motion, Denies muscle cramps, Denies muscle weakness, Denies numbness, Denies radiating pain into limb, Denies stiffness and Denies tingling Neuro Denies abnormal gait, Denies dizziness, Denies numbness and Denies tingling Endo Denies palpitations Physical Exam Vital Signs: Last Vital Signs Pulse 85 08/05/25 09:05 BP 90/60 08/05/25 09:05 BMI result Body Mass Index 29.8 Const General: cooperative, healthy appearing, comfortable and no acute distress Orientation/consciousness: patient oriented x3 Neck Neck: Yes normal visual inspection Resp Effort & Inspection: normal respiratory effort Auscultation: clear to auscultation bilaterally, no crackles, no rales, no rhonchi and no wheezes Cardio Rate: regular rate Rhythm: regular rhythm Heart sounds: S1 normal heart sound present, S2 normal heart sound present, no gallops, no murmurs and no rubs Neuro General: patient oriented x3 Extrem General: Yes normal to inspection, No no pedal edema and No calf tenderness Psych Appearance: grossly normal Mental Status: mental status grossly normal Speech and movement: Normal speech and movement present Office Procedures EKG Details: Today, read by me, accelerated junctional rhythm with inverted P wave and short FL interval, rate 85, Qtc 416ms [id number], Complete Assessment & Plan Assessment & Plan (1) Atrial fibrillation: Code(s): I48.91 - Unspecified atrial fibrillation Category: Medical Plan: New finding of atrial fibrillation yesterday, confirmed by ER EKG. Symptom of heart palpitations. He was treated for rate control and did convert back to sinus rhythm on his own. EKG done in the office today is showing an accelerated junctional rhythm with inverted P waves, rate 85, asymptomatic. Chads Vasc score of 0. Does not need digoxin or Eliquis that was prescribed by the ER since he did convert. Will increase his diltiazem up to 180 mg daily help prevent recurrent PAF. Will check echocardiogram to assess for structural disease. Will check Holter monitor to assess rate and rhythm. Diagnosis of PAF, stroke risk and treatment plans reviewed with him. (2) CAD (coronary artery disease): Code(s): I25.10 - Atherosclerotic heart disease of [place] coronary artery without angina pectoris Category: Medical Plan: Coronary calcium score done 01/07/2024 was 370, primarily in the LAD and left circumflex. Nuclear stress test 03/06/2024 showed normal myocardial perfusion imaging. Currently no anginal symptoms. He is on aspirin indefinitely, ro suvastatin with ideal LDL goal less than 70. He was intolerant to metoprolol and is now on diltiazem. (3) Hospital discharge follow-up: Code(s): Z51.89 - Encounter for other specified aftercare Category: Medical Plan: ED notes reviewed Plan I had a detailed discussion with the patient regarding his new diagnosis of atrial fibrillation. I explained that his heart's electricity was following a di fferent pattern, causing a rapid and irregular beat, and that he is prone to this due to his history of other arrhythmias. 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 I clarified that while the risk is low, it is not zero. I also advised him not to take the digoxin prescribed by the ER since he is currently in a normal rhythm. I recommended increasing his diltiazem dose to 180 mg to better control his heart rate and prevent future episodes, but warned him to monitor for lightheadedness due to his low blood pressure and to increase fluid and salt intake. We will investigate further with a heart monitor and an echocardiogram. I provided anticipatory guidance on lifestyle factors such as reducing caffeine, getting adequate rest, and quitting tobacco, and instructed him on what to do if an episode recurs. Orders: Orders ECG 3 day holter monitor Today I48.91 - Unspecified atrial fibrillation CA echo transthoracic complete Today I48.91 - Unspecified atrial fibrillation Medications: New diltiazem HCl CD (Cardizem CD) dose increased 180 mg PO DAILY 30 caps 5RF Discontinued diltiazem HCl CD Discontinued Reason: Doctor's Order 120 mg PO DAILY 90 caps 3RF Patient Instructions: - I am sending a new prescription for diltiazem at a higher dose of 180 mg to be taken once daily. - If you feel lightheaded or dizzy with the new dose, first try drinking more fluids and adding more salt to your diet. - If this does not help, you may need to go back to the 120 mg dose. - Please cut back on your caffeine intake, for example, to one cup of coffee per day. - Make sure you are drinking plenty of fluids to stay hydrated. - Continue to wear your CPAP machine every night for sleep apnea. - We will be ordering a heart monitor and an echocardiogram (a sonogram of your heart). Centralized scheduling will call you to set up these appointments. - If you feel your heart racing again, try to lie down, relax, and drink fluids to see if it will go back to normal on its own. ED care if needed - You will have a follow-up appointment in our office. Patient was informed and verbally consented to the use of an ambient scribe for clinic note documentation during this visit. Visit time spent on chart review, interview, assessment, orders, documentation. Coding Level of Care Code Est Pt Level 4 (47091) Complex visit Add On G2211 Diagnoses Atrial fibrillation I48.91 CAD (coronary artery disease) I25.10 Hospital discharge follow-up Z51.89 CPT Codes EKG - CPT: [id number], Complete ([id number]) Time Spent (min) 32
== END 2025-08-05 09:40 | disposition home or self-care (01) ==
LOC: HO.HCS 08:58
PROVIDERS: PCP Family Medicine; Visit Provider Nurse Practitioner Family
DX: I48.91 Unspecified atrial fibrillation (principal); I25.10 Atherosclerotic heart disease of native coronary artery without angina pectoris; Z51.89 Encounter for other specified aftercare
CPT/HCPCS: 93010; 99214; G2211

== ENCOUNTER → 2025-08-05 08:57 | Outpatient (BNVA) | payer OTHER, SELFPAY | PROVIDERS: PCP Family Medicine; Visit Provider Nurse Practitioner Family | DX: I48.91 Unspecified atrial fibrillation (principal) | CPT/HCPCS: 93005 ==

== ENCOUNTER 2025-08-12 13:39 | Outpatient (AMB) | payer OTHER, SELFPAY ==
--- NOTE | 2025-08-12 14:03 | MHC.PC.OV ---
Vital Signs 08/12/25 14:36 Height 6 ft Weight 221 lb 2 oz BMI 30.0 BP 132/72 Blood Pressure Location Rt brachial Position Sitting Respiration 16 Pulse 80 Pulse Source Pulse Oximeter Temp 98.1 F Temp Source Oral Pulse Oximetry (%) 97 Oxygen Delivery Method Room Air Intake Visit Reasons: med concerns Intake Note: Patient present for med concerns. [employer] La[employer] Articles Required: No Accompanied by: Self / Same As Patient Allergies citalopram Adverse Reaction (Mild, Verified 08/12/25 14:34) palpitaitons sertraline Adverse Reaction (Mild, Verified 08/12/25 14:34) Palpitations Medication List - Last Reconciled 08/12/25 by Miky Narayanan MD aspirin 81 mg PO DAILY ezetimibe 10 mg PO DAILY flecainide 50 mg PO Q12H gabapentin 600 mg PO DAILY gabapentin 300 mg PO BEDTIME 30 days lorazepam 0.5 mg PO BEDTIME PRN 30 days metoprolol succinate ER 25 mg PO DAILY omeprazole 20 mg PO DAILY 90 days rosuvastatin 5 mg PO DAILY 30 days Tobacco use date assessed: 06/04/25 Dental Screening Dental Screen Date: 06/04/25 HPI med concerns HPI Details 59 y/o male presents today to discuss meds. Blood pressure today 132/62, 80p. Hx of CAD, AFib. Had been following up with [facility] for [facility]ib. He had reported increasing heart palpitations on diltiazem 180mg daily and requesting metoprolol. They had started him on metoprolol XL 25mg daily and flecainide 50mg b.i.d. 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 1. Little interest or pleasure in doing things: several days 2. Feeling down, depressed, or hopeless: not at all 3. Trouble falling or staying asleep, or sleeping too much: several days 4. Feeling tired or having little energy: several days 5. Poor appetite or overeating: not at all 6. Feeling bad about yourself - or that you are a failure or have let yourself or your family down: not at all 7. Trouble concentrating on things, such as reading the newspaper or watching television: not at all 8. Moving or speaking so slowly that other people could have noticed. Or the opposite - being so fidgety or restless that you have been moving around a lot more than usual: not at all 9. Thoughts that you would be better off or of hurting yourself in some way: not at all Total score: 3 Depression Screening Interpretation: Negative Depression Screening Done: Yes 47930 - PHQ-9 Billing: Yes Source: Developed by Drs. Paul Talyor, Leah Hopson, Guru Burciaga and colleagues, with an educational ladi from [employer]. Thrive Questionnaire Date Thrive assessed: 06/04/25 I am a: Patient What is your living situation today?: I have a steady place to live Within the past 12 months, did the food you bought not last and you didn't have the money to get more?: Never true Within the past 12 months, did you worry whether your food would run out before you got money to buy more?: Never true Do you have trouble paying for medicines?: No Do you have trouble getting transportation to medical appointments?: No Do you have trouble paying your heating and electricity bill?: I choose not to answer this question Do you have trouble taking care of your child, family member or friend?: I choose not to answer this question Do you have trouble with day-to-day activities such as bathing, preparing meals, shopping, managing finances, etc.?: No Are you currently unemployed and looking for a job?: I choose not to answer this question Are you interested in more education?: No Please select the resources that you would like help with: None Currently or been in a relationship where the following occur: No concerns reported THRIVE Score: 0 AUDIT C Alcohol Use Questionnaire (AUDIT-C) 1. How often do you have a drink containing alcohol?: Never Total Score: 0 DREAD-7 AMB Questionnaire DREAD-7 Date DREAD - 7 assessed: 08/12/25 Feeling nervous, anxious, or on edge: 1 = Several days Not being able to stop or control worryin = Several days Worrying too much about different things: 0 = Not at all Trouble relaxin = Not at all Being so restless that it is hard to sit still: 0 = Not at all Becoming easily annoyed or irritable: 0 = Not at all Feeling afraid as if something awful might happen: 0 = Not at all Total DREAD-7 score (0-4 normal; 5-9 mild; 10-14 moderate; 15-21 severe): 2 Source: Developed by Drs. Paul Taylor, Leah Hopson, Guru Burciaga and colleagues, with an educational ladi from [employer]. DREAD-7 Assessment Billing DREAD-7 Assessment Tool: DREAD-7 Assessment 40321 Review of Systems Const Denies chills, Denies fatigue, Denies fever(s), Denies headache(s) and Denies weakness ENT Denies dizziness and Denies headache(s) Card Denies dyspnea Resp Denies cough, Denies dyspnea, Denies wheezing and Denies other (shortness of breath) Musc Denies numbness and Denies tingling Neuro Denies dizziness, Denies headache(s), Denies numbness, Denies tingling and Denies weakness Psych Denies anxiety and Denies depression Endo Denies fatigue Aller/Immun Denies wheezing Physical exam (Primary Care) Vital Signs: Last Vital Signs Temp 98.1 F 08/12/25 14:36 Pulse 80 08/12/25 14:36 Resp 16 08/12/25 14:36 BP 132/72 08/12/25 14:36 Pulse Ox 97 08/12/25 14:36 Oxygen Delivery Method Room Air 08/12/25 14:36 BMI result Body Mass Index 30.0 Tobacco/Smoking Status: Tobacco use Status Tobacco use date assessed 06/04/25 08/12/25 14:03 Patient Tobacco Use Status Current everyday Tobacco 08/12/25 14:03 Tobacco use type Smokeless Tobacco 08/12/25 14:03 e-Cigarette/Vaping Use Never Used 08/12/25 14:03 PHQ-9: PHQ-9 Score PHQ-9: Total score 3 08/12/25 15:06 Depression Screening Interpretation: Negative Thrive Assessment: Date of Thrive Assessment Date Thrive assessed 06/04/25 08/12/25 14:03 Currently or been in a relationship where the following occur: No concerns reported Const General: well developed; No acute distress Nutritional Appearance: well nourished Orientation/consciousness: patient oriented x3 HENMT Head: Yes normocephalic and Yes atraumatic Eyes General: appearance normal, both eyes and all related structures Pupils: Equal, round and reactive pupils present EOM: EOMs intact bilaterally Resp Effort & Inspection: normal respiratory effort Auscultation: clear to auscultation bilaterally Cardio Rate: regular rate Rhythm: regular rhythm Heart sounds: S1 normal heart sound present, S2 normal heart sound present, no gallops, no murmurs and no rubs Neuro General: patient oriented x3 and gait normal Cranial nerves: Yes Equal, round and reactive pupils present Psych Affect: normal affect Coding Level of Care Code Est Pt Level 5 (31122) Diagnoses Atrial fibrillation I48.91 CAD (coronary artery disease) I25.10 Anxiety and depression F41.9; F32.A Hypertension I10 Elevated liver enzymes R74.8 Additional Codes DREAD-7 Assessment Billing - DREAD-7 Assessment Tool: DREAD-7 Assessment 63939 ([id number]) PHQ-9 - 74604 - PHQ-9 Billing: Yes ([id number]) Assessment & Plan Assessment & Plan (1) Atrial fibrillation: Code(s): I48.91 - Unspecified atrial fibrillation Category: Medical Plan: Recent ED visit for dehydration and atrial fibrillation He was given diltiazem though this has been changed by his louver door assembler Now taking metoprolol and flecainide; currently taking metoprolol. Has not picked up flecainide yet but will do so today. Heart rate is controlled He is only taking aspirin - this has been discussed his louver door assembler. (2) CAD (coronary artery disease): Code(s): I25.10 - Atherosclerotic heart disease of [place] coronary artery without angina pectoris Category: Medical Plan: As above, followed by cardiology Currently stable (3) Anxiety and depression: Code(s): F41.9 - Anxiety disorder, unspecified; F32.A - Depression, unspecified Category: Medical Plan: Patient notes worsened anxiety He has tried numerous medications in the past including citalopram and Abilify Currently taking lorazepam and this helps but isn't covering his whole day or evenings Will switch to clonazepam We will follow-up in mid October after he has seen his louver door assembler and has had more definitive treatment of his atrial fibrillation. We discussed that we will consider a trial of an SSRI again and decreasing benzodiazepine. (4) Hypertension: Code(s): I10 - Essential (primary) hypertension Category: Medical Plan: Blood pressure is fairly well controlled. Goal is less than 130/80 Continue current medications (5) Elevated liver enzymes: Code(s): R74.8 - Abnormal levels of other serum enzymes Category: Medical Plan: Liver enzymes were high at last measurement He has been hydrating well since his visit to the emergency department Will recheck this prior to his next visit Orders: Orders Comprehensive [place]. Panel Fast 08/12/25 I48.91 - Unspecified atrial fibrillation, Z00.00 - Encounter for general adult medical examination without abnormal findings Complete Blood Count Auto Diff 08/12/25 I48.91 - Unspecified atrial fibrillation, Z00.00 - Encounter for general adult medical examination without abnormal findings Hemoglobin A1c 08/12/25 R73.01 - Impaired fasting glucose TSH reflex Free T4 08/12/25 I48.91 - Unspecified atrial fibrillation, Z00.00 - Encounter for general adult medical examination without abnormal findings Medications: New clonazepam (Klonopin) 0.25 mg (1/2 x 0.5 mg) PO BID PRN 30 tabs 0RF anxiety 30 days F32.A - Depression, unspecified, F41.9 - Anxiety disorder, unspecified Discontinued lorazepam Discontinued Reason: Doctor's Order 0.5 mg PO BEDTIME 30 days PRN 30 tabs 0RF anxiety diltiazem HCl CD (Cardizem CD) dose increased Discontinued Reason: Doctor's Order 180 mg PO DAILY 30 caps 5RF dronedarone (Multaq) must administer with a meal/food Discontinued Reason: Doctor's Order 400 mg PO BID 60 tabs 5RF
[2025-08-12 14:36] VITALS: BP 132/72; PULSE 80; RESP 16; TEMP 36.7; O2SAT 97
== END 2025-08-12 15:03 | disposition home or self-care (01) ==
LOC: HO.HMCFM 13:41
PROVIDERS: PCP Family Medicine; Visit Provider Family Medicine
DX: I48.91 Unspecified atrial fibrillation (principal); I25.10 Atherosclerotic heart disease of native coronary artery without angina pectoris; I10 Essential (primary) hypertension; F41.9 Anxiety disorder, unspecified; F32.A Depression, unspecified; R74.8 Abnormal levels of other serum enzymes

== ENCOUNTER → 2025-08-12 13:39 | Outpatient (BNVA) | payer OTHER, SELFPAY | PROVIDERS: PCP Family Medicine; Visit Provider Family Medicine | DX: Z13.31 Encounter for screening for depression (principal); Z13.39 Encounter for screening examination for other mental health and behavioral disorders | CPT/HCPCS: 96127 ==